=== PATIENT | male | born 1950 | race Caucasian/White ===

== ENCOUNTER 2017-03-21 17:22 | Inpatient (IN) | payer OTHER ==
[~2017-03-21] VITALS: Ht 174 cm; Wt 87.7 kg
[2017-03-21] VITALS (13 sets, daily range): BP systolic 115–183; BP diastolic 59–98; PULSE 60–98; RESP 16–20; TEMP 97.6–98.7; O2SAT 95–100
[~2017-03-21 17:22] MED LIST: IBUP600T26 PO; IOHEXOL 350 MG/ML 100 ML BTL (for Cath Lab) OTHER ONE; TRAM50TA PO
[2017-03-21] MEDS ORDERED: ASPIRIN 325 MG TAB PO ONE (17:45)
[2017-03-21] MEDS ORDERED: MORPHINE SULFATE 4 MG/ML INJ IV PUSH ONE (17:45)
[2017-03-21] MEDS ORDERED: ONDANSETRON HCL 4 MG/2 ML VIAL IV PUSH ONE (17:45)
[2017-03-21] MEDS: NITROGLYCERIN 0.4 MG SL 25 TABS/BTL SL SCH ×3 (17:45→17:56)
[2017-03-21] MEDS: SODIUM CHLORIDE 0.9% FLUSH 10 ML FLUSH IVF PRN ×2 (17:49→18:37)
--- NOTE | 2017-03-21 17:55 | PD ---
HPI Chief Complaint: Chest Pain Time Seen by Provider: 17:26 Travel History International Travel<30 days: No Contact w/Intl Traveler<30days: No History of Present Illness HPI 66-year-old male complains of chest pain for about 3-1/2 hours or so. It started shortly after he ate a large lunch including a salad with same and then a slice of pizza. He states it radiates from the left shoulder to the region of the right shoulder and across the chest wall. There is no exertional or pleuritic component. There is no shortness of breath. It has a tight quality. 8/10 as maximum severity reported and he states the pain is quite severe in the ER time of interview. He also appears somewhat uncomfortable. He has no history of diabetes hypertension hyperlipidemia smoking or coronary artery disease. His father had coronary artery disease in his 40s. The patient took 2 baby aspirin prior to ER arrival which didn't make a difference. In the car ride on the way over the patient vomited multiple times. He was diaphoretic at that time however has not had diaphoresis otherwise. There was no real relief after the vomiting episodes. [facility] Social History Alcohol Use: No Tobacco Use: No Substance Use: No Allergies-Medications (Allergen,Severity, Reaction): Coded Allergies: No Known Allergies (Unverified , 03/21/17) Reported Meds & Prescriptions Reported Meds & Active Scripts Active No Active Prescriptions or Reported Medications Review of Systems Except as stated in HPI: all other systems reviewed are Neg Physical Exam Narrative GENERAL: 66 yo M, WNWD, moderate distress 2/2 pain with or without anxiety SKIN: Warm and dry. HEAD: Atraumatic. Normocephalic. EYES: Pupils equal and round. No scleral icterus. No injection or drainage. ENT: No nasal bleeding or discharge. Mucous membranes pink and moist. NECK: Trachea midline. No JVD. CARDIOVASCULAR: Regular rate and rhythm. 2+ radial artery pulse bilaterally. RESPIRATORY: No accessory muscle use. Clear to auscultation. Breath sounds equal bilaterally. GASTROINTESTINAL: Abdomen soft, non-tender, nondistended. Hepatic and splenic margins not palpable. MUSCULOSKELETAL: Extremities without clubbing, cyanosis, or edema. No obvious deformities. No sign DVT. NEUROLOGICAL: Awake and alert. No obvious cranial nerve deficits. Motor grossly within normal limits. Five out of 5 muscle strength in the arms and legs. Normal speech. PSYCHIATRIC: Appropriate mood and affect; insight and judgment normal. Data Data Last Documented VS Vital Signs Date Time Temp Pulse Resp B/P Pulse Ox O2 Delivery O2 Flow Rate FiO2 03/21/17 18:02 16 03/21/17 18:00 61 131/70 98 Nasal Cannula 2 03/21/17 17:34 97.7 Orders Electrocardiogram (03/21/17 17:37) Basic Metabolic Panel (Bmp) (03/21/17 17:37) Ckmb (Isoenzyme) Profile (03/21/17 17:37) Complete Blood Count With Diff (03/21/17 17:37) Magnesium (Mg) (03/21/17 17:37) Prothrombin Time / Inr (Pt) (03/21/17 17:37) Act Partial Throm Time (Ptt) (03/21/17 17:37) Troponin I (03/21/17 17:37) Chest, Single Ap (03/21/17 17:37) Ecg Monitoring (03/21/17 17:37) Bilateral Bp Monitoring (03/21/17 17:37) Iv Access Insert/Monitor (03/21/17 17:37) Oximetry (03/21/17 17:37) Oxygen Administration (03/21/17 17:37) Aspirin (Aspirin) (03/21/17 17:45) Morphine Inj (Morphine Inj) (03/21/17 17:45) Sodium Chloride 0.9% Flush (Ns Flush) (03/21/17 17:45) Nitroglycerin Sl (Nitrostat Sl) (03/21/17 17:45) Ct Pulmonary Angiogram (03/21/17 17:37) Ondansetron Inj (Zofran Inj) (03/21/17 17:45) Aspirin Chew (Aspirin Chew) (03/21/17 18:00) B-Type Natriuretic Peptide (03/21/17 17:58) CKMB (03/21/17 17:30) CKMB% (03/21/17 17:30) Heparin Infusion MARTHA.Q1H (03/21/17 18:10) Heparin Inj (Heparin Inj) (03/21/17 18:15) Heparin Inj (Heparin Inj) (03/22/17 00:15) Heparin Inj (Heparin Inj) (03/22/17 00:15) Heparin-D5w Inj (Heparin-D5w Inj) (03/21/17 18:15) Cbc No Diff, Includes Plts (03/24/17 06:00) Act Partial Throm Time (Ptt) (03/22/17 01:10) Occult Blood (Hemoccult) Stool (03/21/17 18:10) Hepatic Functional Panel (03/21/17 17:30) Lipase (03/21/17 17:30) Hydromorphone Pf Inj (Dilaudid Pf Inj) (03/21/17 18:15) Nitroglycerin 2% Oint (Nitroglycerin 2% (03/21/17 18:15) Iohexol 350 Inj (Omnipaque 350 Inj) (03/21/17 18:39) Admit Order (Ed Use Only) (03/21/17 ) Spanish Interpreter / Telemetry MARTHA.Q8H (03/21/17 19:13) Vital Signs (Adult) Q4H (03/21/17 19:13) Ice Chips (03/21/17 19:13) Activity Oob With Assistance (03/21/17 19:13) Notify Dr: Other (03/21/17 19:13) ^ Saline Lock (03/21/17 19:13) Resp Oxygen Lizandro C Titrat 1-4 L (03/21/17 ) Notify Dr: Other (03/21/17 19:13) Sodium Chloride 0.9% Flush (Ns Flush) (03/21/17 21:00) Sodium Chloride 0.9% Flush (Ns Flush) (03/21/17 19:15) Consult Cardiology (03/21/17 19:13) Labs Laboratory Tests Test 03/21/17 17:30 White Blood Count 11.3 TH/MM3 Red Blood Count 4.95 MIL/MM3 Hemoglobin 14.4 GM/DL Hematocrit 42.0 % Mean Corpuscular Volume 84.8 FL Mean Corpuscular Hemoglobin 29.0 PG Mean Corpuscular Hemoglobin 34.3 % Concent Red Cell Distribution Width 12.2 % Platelet Count 311 TH/MM3 Mean Platelet Volume 8.4 FL Neutrophils (%) (Auto) 69.5 % Lymphocytes (%) (Auto) 21.2 % Monocytes (%) (Auto) 7.5 % Eosinophils (%) (Auto) 0.8 % Basophils (%) (Auto) 1.0 % Neutrophils # (Auto) 7.9 TH/MM3 Lymphocytes # (Auto) 2.4 TH/MM3 Monocytes # (Auto) 0.8 TH/MM3 Eosinophils # (Auto) 0.1 TH/MM3 Basophils # (Auto) 0.1 TH/MM3 CBC Comment DIFF FINAL Differential Comment Prothrombin Time 11.3 SEC Prothromb Time International 1.0 RATIO Ratio Activated Partial 25.3 SEC Thromboplast Time Sodium Level 139 MEQ/L Potassium Level 3.6 MEQ/L Chloride Level 102 MEQ/L Carbon Dioxide Level 28.5 MEQ/L Anion Gap 9 MEQ/L Blood Urea Nitrogen 11 MG/DL Creatinine 1.20 MG/DL Estimat Glomerular Filtration 61 ML/MIN Rate Random Glucose 146 MG/DL Calcium Level 8.0 MG/DL Magnesium Level 2.1 MG/DL Total Bilirubin 0.8 MG/DL Direct Bilirubin 0.1 MG/DL Indirect Bilirubin 0.7 MG/DL Aspartate Amino Transf 36 U/L (AST/SGOT) Alanine Aminotransferase 55 U/L (ALT/SGPT) Alkaline Phosphatase 73 U/L Total Creatine Kinase 287 U/L Creatine Kinase MB 3.0 NG/ML Troponin I 0.19 NG/ML B-Type Natriuretic Peptide 28 PG/ML Total Protein 7.7 GM/DL Albumin 3.8 GM/DL Lipase 104 U/L MDM Medical Decision Making Medical Screen Exam Complete: Yes Emergency Medical Condition: Yes Differential Diagnosis NSTEMI, unstable angina, coronary vasospasm, PE, PTX, aortic dissection, pericarditis, myocarditis, endocarditis, PNA, esophageal disease, aneurysm, musculoskeletal etiologies, anxiety, cocaine/sympathomimetic abuse Narrative Course EKG reveals sinus rhythm rate 65, extensive ST changes could reflect ischemic injury, no STEMI 1810: pain / after morphine, asa 162, and nitro sl x 3, now involving primarily L shoulder 1813: heparin gtt ordered, pt informed, RN informed 1817: page for Dr Melara of cardiology, pt also to CTA at approx same time 1854: pt reports improvement of pain 03/25 1920: pt resting comfortably on bed 1854: d/w Dr Melara of cardiology, who advises transfer to [facility] 1914: d/w Dr Castillo for [facility] 1950: pain improved significantly, CTA results d/w patient CBC & BMP Diagram 03/21/17 17:30 Tn 0.19 LFTs normal BNP < 100 Lipase normal Last 24 hours Impressions Chest X-Ray 03/21/17 2197 Signed Impressions: Service Date/Time: Tuesday, March 21, 2017 17:38 - CONCLUSION: 1. Minimal basal atelectasis. No effusion. No pneumothorax. Lucien Heller MD Critical Care Narrative Aggregate critical care time was 45 minutes. Time to perform other separately billable procedures was not included in the critical care time. My time did not include minutes spent treating any other patients simultaneously or on activities that did not directly contribute to the patient's treatment. The services I provided to this patient were to treat and/or prevent clinically significant deterioration that could result in: Heart injury due to coronary artery occlusion, intractable pain I provided critical care services requiring my management, as noted below: Chart data review, documentation time, medication orders and management, vital sign assessments/reviewing monitor data, ordering and reviewing lab tests, ordering and interpreting/reviewing x-rays and diagnostic studies, care of the patient and discussion of the patient with the admitting physicians. Diagnosis Primary Impression: NSTEMI (non-ST elevated myocardial infarction) Admitting Information Admitting Physician Requests: Admit Scripts No Active Prescriptions or Reported Mikey Sullivan MD March 21, 2017 17:55 activities that did not directly contribute to the patient's treatment. The services I provided to this patient were to treat and/or prevent clinically significant deterioration that could result in: Heart injury due to coronary artery occlusion, intractable pain I provided critical care services requiring my management, as noted below: Chart data review, documentation time, medication orders and management, vital sign assessments/reviewing monitor data, ordering and reviewing lab tests, ordering and interpreting/reviewing x-rays and diagnostic studies, care of the patient and discussion of the patient with the admitting physicians. Diagnosis Primary Impression: NSTEMI (non-ST elevated myocardial infarction) Scripts No Active Prescriptions or Reported Mikey Sullivan MD March 21, 2017 17:55
[2017-03-21 17:58] LABS: CHLORIDE 102 MEQ/L (98-107); POTASSIUM 3.6 MEQ/L (3.5-5.1); SODIUM (NA) 139 MEQ/L (136-145)
[2017-03-21] MEDS ORDERED: ASPIRIN 81 MG CHEW TAB PO ONE (18:00)
[2017-03-21 18:01] LABS: ANION GAP 9 MEQ/L (5-15); AUTOMATED NEUTROPHIL # 7.9 TH/MM3 (1.8-7.7); BASOPHIL # 0.1 TH/MM3 (0-0.2); BICARBONATE 28.5 MEQ/L (21.0-32.0); BLOOD UREA NITROGEN 11 MG/DL (7-18); EOSINOPHIL # 0.1 TH/MM3 (0-0.4); EOSINOPHIL % 0.8 % (0.0-4.0); HEMO FLAGS DIFF FINAL; LYMPH % 21.2 % (9.0-44.0); LYMPHOCYTE # 2.4 TH/MM3 (1.0-4.8); MAGNESIUM 2.1 MG/DL (1.5-2.5); MEAN CELL VOLUME 84.8 FL (80.0-100.0); MEAN CORPUSCULAR HGB CONC 34.3 % (32.0-36.0); MONO % 7.5 % (0.0-8.0); NEUT % 69.5 % (16.0-70.0); PLATELET COUNT 311 TH/MM3 (150-450); RED BLOOD COUNT 4.95 MIL/MM3 (4.50-5.90); RED CELL DISTRIBUTION WIDTH 12.2 % (11.6-17.2); WHITE BLOOD COUNT 11.3 TH/MM3 (4.0-11.0)
[2017-03-21 18:04] LABS: GLOMERULAR FILTRATION RATE 61 ML/MIN (>89)
[2017-03-21 18:07] LABS: CREATINE KINASE 287 U/L (39-308)
[2017-03-21] MEDS ORDERED: HEPARIN SODIUM - IV 10,000 UNITS/10 ML VIAL IV ONE (18:15)
[2017-03-21] MEDS ORDERED: HEPARIN-D5W INJ 250 ML IV SCH (18:15)
[2017-03-21] MEDS ORDERED: NITROGLYCERIN 2% OINT 1 GM PACKET TOP ONE (18:15)
[2017-03-21] MEDS ORDERED: HYDROmorphone HCL PF 1 MG/ML VIAL IV PUSH ONE (18:15)
[2017-03-21 18:17] LABS: APTT (PATIENT) 25.3 SEC (24.3-30.1); PROTHROMBIN TIME - PATIENT 11.3 SEC (9.8-11.6)
[2017-03-21 18:21] LABS: AST (GOT) 36 U/L (15-37)
[2017-03-21 18:22] LABS: TOTAL BILIRUBIN ADULT 0.8 MG/DL (0.2-1.0)
[2017-03-21 18:23] LABS: ALKALINE PHOSPHATASE 73 U/L (45-117)
[2017-03-21 18:37] LABS: ALT (GPT) 55 U/L (12-78); INDIRECT BILIRUBIN 0.7 MG/DL (0.0-0.8)
[2017-03-21] MEDS ORDERED: IOHEXOL 350 MG/ML 10 ML VIAL (for RAD DIAG) IV ONE (18:39)
--- NOTE | 2017-03-21 19:05 | RADHPO ---
EXAM DATE/TIME: 03/21/2017 17:38 [facility] COMPARISON: No previous studies available for comparison. INDICATIONS : Chest pain for 2 hrs MEDICAL HISTORY : None. SURGICAL HISTORY : None. ENCOUNTER: Initial ACUITY: 1 day PAIN SCORE: 10/10 LOCATION: Bilateral chest FINDINGS: A single view of the chest demonstrates the lungs to be symmetrically aerated without evidence of mas s, infiltrate or effusion. There is minimal basilar atelectasis. The cardiomediastinal contours are u nremarkable. Osseous structures are intact. CONCLUSION: 1. Minimal basal atelectasis. No effusion. No pneumothorax. Lucien Heller MD on March 21, 2017 at 19:02 Board Certified Radiologist. This report was verified electronically.
[2017-03-21] MEDS ORDERED: BISACODYL 10 MG SUPP RECTAL PRN (19:15)
[2017-03-21] MEDS ORDERED: SODIUM CHLORIDE 0.9% FLUSH 10 ML FLUSH IV FLUSH PRN (19:15)
[2017-03-21] MEDS ORDERED: SODIUM CHLORIDE 0.9% FLUSH 10 ML FLUSH IVF PRN (19:15)
[2017-03-21] MEDS ORDERED: MORPHINE SULFATE 4 MG/ML INJ IV PRN (19:15)
--- NOTE | 2017-03-21 19:34 | RADHPO ---
EXAM DATE/TIME: 03/21/2017 18:17 [facility] COMPARISON: No previous studies available for comparison. INDICATIONS : Left side chest pain. IV CONTRAST: 65 cc Omnipaque 350 (iohexol) IV RADIATION DOSE: 18.35 CTDIvol (mGy) MEDICAL HISTORY : None SURGICAL HISTORY : None. ENCOUNTER: Initial ACUITY: 1 day PAIN SCALE: 8/10 LOCATION: Left chest TECHNIQUE: Volumetric scanning of the chest was performed using a pulmonary embolism protocol MIP images were re constructed. Using automated exposure control and adjustment of the mA and/or kV according to patien t size, radiation dose was kept as low as reasonably achievable to obtain optimal diagnostic quality images. FINDINGS: There is minimal dependent atelectasis in the lungs. No filling defects are identified the pulmonary arteries to suggest pulmonary embolic disease. No mild coronary artery calcifications. No pleural or pericardial effusion. No acute findings in the upper abdomen. Small hiatal hernia. CONCLUSION: 1. Negative for pulmonary embolus. 2. There is mild dependent atelectasis in the lungs. 3. Mild coronary calcifications. 4. Small hiatal hernia. Lucien Heller MD on March 21, 2017 at 19:28 Board Certified Radiologist. This report was verified electronically.
[2017-03-21] MEDS: SODIUM CHLOR 0.9% 1000 ML INJ 1,000 ML IV SCH (20:24)
[2017-03-21] MEDS: SODIUM CHLORIDE 0.9% FLUSH 10 ML FLUSH IV FLUSH SCH (20:51)
[2017-03-21] MEDS ORDERED: SODIUM CHLORIDE 0.9% FLUSH 10 ML FLUSH IV FLUSH SCH (21:00)
--- NOTE | 2017-03-21 21:36 | EKG ---
Date Performed: 03/21/2017 Time Performed: 18:02:00 PTAGE: 66 years EKG: Sinus rhythm . Possible septal infarct - age undetermined Inferior/lateral ST-T changes are nonspecific Abnormal E CG PREVIOUS TRACING : 03/21/2017 17.23 DOCTOR: Lola Melara Interpretating Date/Time 03/21/2017 21:35:27
--- NOTE | 2017-03-21 21:38 | EKG ---
Date Performed: 03/21/2017 Time Performed: 17:23:28 PTAGE: 66 years EKG: Sinus rhythm . Extensive ST-T changes are nonspecific Borderline ECG PREVIOUS TRACING : 03/29/2015 11.22 DOCTOR: Lola Melara Interpretating Date/Time 03/21/2017 21:36:25
[2017-03-21] MEDS: METOPROLOL TARTRATE 25 MG TAB PO SCH (21:52)
[2017-03-21] MEDS: ONDANSETRON HCL 4 MG/2 ML VIAL IVP PRN (22:45)
[2017-03-21] MEDS: PANTOPRAZOLE SOD 40 MG DELAYED RELEASE TAB PO SCH (23:30)
[2017-03-21] MEDS ORDERED: ALUMINUM/MAGNESIUM/SIMETH 30 ML CUP PO ONE (23:30)
--- NOTE | 2017-03-21 23:45 | HHI.HP ---
[facility] No Primary Care Physician Admission Diagnosis NSTEMI Diagnoses: (1) NSTEMI (non-ST elevated myocardial infarction) Chief Complaint: Chest pain Travel History International Travel<30 Days: No Contact w/Intl Traveler <30 Da: No History of Present Illness Mr. Robles is a very pleasant 66-year-old male with a history of GERD and backaches who presented to the emergency room with complaint of chest pain. Troponin I elevation was noted as well as short runs of nonsustained ventricular tachycardia in the [place] emergency room. The patient has been transferred to [facility] for admission, evaluation, and management. The patient states he was out with his this afternoon. He had pizza and wings for lunch and they were shopping afterwards when he started to get an abrupt onset of upper chest discomfort and pain in both of his arms; he rates the pain as an 8 out of 10 and describes it as sharp. He states it waxed and waned at times with pain levels decreasing only to 5 out of 10 for maybe 5 minutes. The pain started at 2:30 PM on 03/21/2017 and by 5:30 PM, when the pain had not gone away, his urged him to seek emergency medical treatment and drove him to the emergency room. He states that the pain was relieved by medications administered in the ER: Aspirin, nitroglycerin, Dilaudid, and morphine. He denies any current chest pain. He states that he has had nausea 3 times today with vomiting. He reports some intermittent episodes of diaphoresis but believes this was related to anxiety from having the chest pain. He denies palpitations, shortness of breath, or dizziness/ lightheadedness. He has been suffering from heartburn and describes frequent eructation. He reports that last Thursday on 03/16/2017, he had returned from a flight to [place] with his . They were running through the [place] airport and he states he became diaphoretic and short of breath and required rest to ameliorate symptoms. 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 He is unable to tell me how long this is been going on but states he attributed the shortness of breath that occurred while trying to kick start motorcycles to getting older and not being able to perform like he used to. He denies any recent illness, fever, chills, upper respiratory symptoms, syncope , nausea, vomiting, or diarrhea. He denies diabetes mellitus, hypertension, heart disease, respiratory problems, kidney or liver problems, thyroid dysfunction, cancer, or seizures. He has not seen a primary care physician in about 3 years. . Review of Systems Except as stated in HPI: all other systems reviewed are Neg Past Family Social History Past Medical History GERD Occasional back pain/aches . Past Surgical History Varicose vein surgery - bilateral lower extremities . Reported Medications Advil 200 mg 1- 2 PRN back pain/aches Prilosec 20 mg OTC PRN for GERD symptoms . Allergies: Coded Allergies: No Known Allergies (Unverified , 03/21/17) Active Ordered Medications Current Medications Aspirin (Aspirin) 325 mg ONCE ONCE PO ; Start 03/21/17 at 17:45; Stop 03/21/17 at 17:47; Status DC Morphine Sulfate (Morphine Inj) 4 mg ONCE ONCE IV PUSH Last administered on 17:45; Start 03/21/17 at 17:45; Stop 03/21/17 at 17:46; Status DC Sodium Chloride (NS Flush) 2 ml UNSCH PRN IVF FLUSH AFTER USING IV ACCESS Last administered on 03/21/17 18:37; Start 03/21/17 at 17:45; Stop 03/21/17 at 19:40; Status DC Nitroglycerin (Nitrostat Sl) 0.4 mg Q5M SL Last administered on 03/21/17 17:56 ; Start 03/21/17 at 17:45; Stop 03/21/17 at 17:56; Status DC Ondansetron HCl (Zofran Inj) 4 mg ONCE ONCE IV PUSH Last administered on 17:44; Start 03/21/17 at 17:45; Stop 03/21/17 at 17:46; Status DC Aspirin (Aspirin Chew) 162 mg ONCE ONCE PO Last administered on 03/21/17 17:56 ; Start 03/21/17 at 18:00; Stop 03/21/17 at 18:01; Status DC Heparin Sodium (Porcine) (Heparin Inj) 4,000 units ONCE ONCE IV Last administered on 03/21/17 18:35; Start 03/21/17 at 18:15; Stop 03/21/17 at 18:16; Status DC Heparin Sodium (Porcine) (Heparin Inj) 5,000 units UNSCH PRN IV APTT LESS THAN 25; Start 03/22/17 at 00:15 Heparin Sodium (Porcine) 2500 units 2,500 units UNSCH PRN IV APTT 25 TO 39; Start 03/22/17 at 00:15 Heparin Sodium/ Dextrose (Heparin-D5W Inj) 250 ml @ 0 mls/hr TITRATE IV Last administered on 03/21/17 18:41; Start 03/21/17 at 18:15 Hydromorphone HCl (Dilaudid Pf Inj) 0.5 mg ONCE ONCE IV PUSH Last administered on 03/21/17 18:37; Start 03/21/17 at 18:15; Stop 03/21/17 at 18:18; Status DC Nitroglycerin (Nitroglycerin 2% Oint) 1 inch ONCE ONCE TOP Last administered on 03/21/17 18:36; Start 03/21/17 at 18:15; Stop 03/21/17 at 18:18; Status DC Iohexol (Omnipaque 350 Inj) 65 ml STK-MED ONCE IV Last administered on 18:39; Start 03/21/17 at 18:39; Stop 03/21/17 at 18:40; Status DC Sodium Chloride (NS Flush) 2 ml BID IV FLUSH ; Start 03/21/17 at 21:00; Stop 03/21 at 21:00; Status DC Sodium Chloride 2 ml 2 ml UNSCH PRN IVF FLUSH AFTER USING IV ACCESS; Start 03/21 at 19:15; Stop 03/21/17 at 19:40; Status DC Sodium Chloride (NS 1000 ml Inj) 1,000 ml @ 100 mls/hr Q10H IV Last administered on 03/21/17 20:24; Start 03/21/17 at 19:14 Sodium Chloride (NS Flush) 2 ml UNSCH PRN IV FLUSH FLUSH AFTER USING IV ACCESS ; Start 03/21/17 at 19:15 Sodium Chloride (NS Flush) 2 ml BID IV FLUSH ; Start 03/21/17 at 21:00 Ondansetron HCl (Zofran Inj) 4 mg Q6H PRN IVP NAUSEA OR VOMITING; Start at 19:15 Bisacodyl (Dulcolax Supp) 10 mg DAILY PRN RECTAL CONSTIPATION; Start 03/21/17 at 19:15 Acetaminophen (Tylenol) 650 mg Q6H PRN PO FEVER/PAIN SCALE 1 TO 2; Start at 19:15 Acetaminophen/ Hydrocodone Bitart ([place] 5-325 Mg) 1 tab Q4H PRN PO PAIN SCALE 3 TO 5; Start 03/21/17 at 19:15 Morphine Sulfate (Morphine Inj) 2 mg Q3H PRN IV Pain 6-10; Start 03/21/17 at 19: 15 Aspirin (Ecotrin Ec) 81 mg DAILY PO ; Start 03/22/17 at 09:00 Pravastatin Sodium (Pravachol) 40 mg DAILY PO ; Start 03/22/17 at 09:00 Metoprolol Tartrate (Lopressor) 12.5 mg Q12HR PO Last administered on 03/21/17t 21:52; Start 03/21/17 at 21:00 . Family History Father had open heart surgery at the age of 78; ?was told he had a heart attack at the age of about 48 or 50? - was seen at home and went back to work the next day 2 brothers - both have arthritis . Social History Tobacco: Smoked half a pack per day for 10 years - quit 35 years ago Alcohol: Denies Illicit Drugs: Denies . Physical Exam Vital Signs Vital Signs Date Time Temp Pulse Resp B/P Pulse Ox O2 Delivery O2 Flow Rate FiO2 03/21/17 23:02 98.7 98 18 135/84 95 03/21/17 20:48 68 20 143/74 100 03/21/17 19:20 97.7 60 18 129/72 98 Nasal Cannula 2 03/21/17 19:20 60 18 98 Nasal Cannula 2 03/21/17 18:02 16 03/21/17 18:02 16 03/21/17 18:00 61 16 131/70 98 Nasal Cannula 2 03/21/17 17:54 72 16 158/83 100 Nasal Cannula 03/21/17 17:48 67 16 161/87 03/21/17 17:48 18 98 Nasal Cannula 2 03/21/17 17:40 99 Nasal Cannula 2 03/21/17 17:40 68 16 175/98 99 Nasal Cannula 2 03/21/17 17:38 67 16 99 Room Air 03/21/17 17:34 97.7 66 16 183/97 99 Physical Exam GENERAL: This is a very pleasant male patient, in no apparent distress. SKIN: No rashes, ecchymoses or lesions. Cool and dry. HEAD: Atraumatic. Normocephalic. EYES: No scleral icterus. No injection or drainage. ENT: Nose without bleeding, purulent drainage. NECK: Trachea midline. No JVD. No carotid bruit auscultated. CARDIOVASCULAR: Regular rate and rhythm without murmurs, gallops, or rubs. Peripheral pulses are regular and strong. RESPIRATORY: Clear to auscultation. Breath sounds equal bilaterally. No wheezes , rales, or rhonchi. GASTROINTESTINAL: Abdomen soft, non-tender, nondistended. No guarding. MUSCULOSKELETAL: Extremities without clubbing, cyanosis, or edema. No calf tenderness. NEUROLOGICAL: Awake and alert. Motor and sensory grossly within normal limits. Normal speech. . Laboratory Laboratory Tests Test 03/21/17 17:30 White Blood Count 11.3 Red Blood Count 4.95 Hemoglobin 14.4 Hematocrit 42.0 Mean Corpuscular Volume 84.8 Mean Corpuscular Hemoglobin 29.0 Mean Corpuscular Hemoglobin 34.3 Concent Red Cell Distribution Width 12.2 Platelet Count 311 Mean Platelet Volume 8.4 Neutrophils (%) (Auto) 69.5 Lymphocytes (%) (Auto) 21.2 Monocytes (%) (Auto) 7.5 Eosinophils (%) (Auto) 0.8 Basophils (%) (Auto) 1.0 Neutrophils # (Auto) 7.9 Lymphocytes # (Auto) 2.4 Monocytes # (Auto) 0.8 Eosinophils # (Auto) 0.1 Basophils # (Auto) 0.1 CBC Comment DIFF FINAL Differential Comment Prothrombin Time 11.3 Prothromb Time International 1.0 Ratio Activated Partial 25.3 Thromboplast Time Sodium Level 139 Potassium Level 3.6 Chloride Level 102 Carbon Dioxide Level 28.5 Anion Gap 9 Blood Urea Nitrogen 11 Creatinine 1.20 Estimat Glomerular Filtration 61 Rate Random Glucose 146 Calcium Level 8.0 Magnesium Level 2.1 Total Bilirubin 0.8 Direct Bilirubin 0.1 Indirect Bilirubin 0.7 Aspartate Amino Transf 36 (AST/SGOT) Alanine Aminotransferase 55 (ALT/SGPT) Alkaline Phosphatase 73 Total Creatine Kinase 287 Creatine Kinase MB 3.0 Troponin I 0.19 B-Type Natriuretic Peptide 28 Total Protein 7.7 Albumin 3.8 Lipase 104 Result Diagram: 03/21/17172903/21/171729 Imaging Last Impressions Chest X-Ray 03/21/171736 Signed Impressions: Service Date/Time: Tuesday, March 21, 2017 17:38 - CONCLUSION: 1. Minimal basal atelectasis. No effusion. No pneumothorax. Lucien eHller MD CT Angiography 03/21/171736 Signed Impressions: Service Date/Time: Tuesday, March 21, 2017 18:17 - CONCLUSION: 1. Negative for pulmonary embolus. 2. There is mild dependent atelectasis in the lungs. 3. Mild coronary calcifications. 4. Small hiatal hernia. Lucien Heller MD . Assessment and Plan Problem List: (1) NSTEMI (non-ST elevated myocardial infarction) ICD Code: I21.4 Status: Acute (2) Chest pain ICD Code: R07.9 Status: Acute (3) Nonsustained ventricular tachycardia ICD Code: I47.2 Status: Acute (4) GERD (gastroesophageal reflux disease) ICD Code: K21.9 Status: Acute (5) Backache ICD Code: M54.9 Status: Chronic Assessment and Plan Mr. Robles is a very pleasant 66-year-old male with a history of GERD and backaches who presented to the emergency room with complaint of chest pain. Troponin I elevation was noted as well as short runs of nonsustained ventricular tachycardia in the [place] emergency room. The patient has been transferred to [facility] for admission, evaluation, and management. Chest Pain/NSTEMI - Initial Troponin I is 0.19, will check serial cardiac enzymes and EKG - first two EKGs show SR with nonspecific inferolateral ST-T changes - Dr. Melara consulted - Heparin drip for anticoagulation - Check lipid profile and hemoglobin A1C - to evaluate for hyperlipidemia and diabetes mellitus - Pravastatin 40 mg daily - Monitor I and Os to monitor for fluid overload Nonsustained ventricular tachycardia - Metoprolol 12.5 mg by mouth twice a day - Dr. Melara aware - Continuous cardiac telemetry to monitor for further arrhythmias GERD - Start Protonix 40 mg by mouth daily to control symptoms - Mylanta 30 cc one time dose Chronic intermittent backaches - suspect will worsen w/cardiac catheterization as patient will need to lay flat for some time post procedure - PRN analgesics DVT prophylaxis - heparin drip . Discussed Condition With Patient, Dr. Castillo, RN, and ER physician Collaborating MD Comments Agree w/ above assessment and plan. 66yom w/ acute onset of CP, found to have elevated trop 0.19 and episode of non- sustained Vtach prior to transport from PO -Continue Heparin gtt -Check serial cardiac enzymes -Dr. Melara consulted by ER physician prior to transfer, plan for possible cath -Keep NPO, IVF -Analgesics/antiemetics as needed Physician Certification 2 Midnight Certification Type: Admission for Inpatient Services Order for Inpatient Services The services are ordered in accordance with Medicare regulations or non- Medicare payer requirements, as applicable. In the case of services not specified as inpatient-only, they are appropriately provided as inpatient services in accordance with the 2-midnight benchmark. Estimated LOS (days): 3 days is the estimated time the patient will need to remain in the hospital, assuming treatment plan goals are met and no additional complications. Post-Hospital Plan: Not yet determined Problem Qualifiers (1) Backache: Shabnam Murillo March 21, 2017 23:45 Liseth Castillo MD March 22, 2017 00:41
[2017-03-22] VITALS (24 sets, daily range): BP systolic 126–140; BP diastolic 74–80; PULSE 60–82; RESP 16; TEMP 98.2–98.9; O2SAT 94–97
[2017-03-22] MEDS ORDERED: HEPARIN SODIUM - IV 10,000 UNITS/10 ML VIAL IV PRN ×2 (00:15)
[2017-03-22] MEDS: ACETAMINOPHEN/HYDROcodone 325 MG/5 MG TAB PO PRN ×3 (01:06→22:06)
[2017-03-22 02:41] LABS: APTT (PATIENT) 32.9 SEC (24.3-30.1)
[2017-03-22] MEDS: SODIUM CHLOR 0.9% 1000 ML INJ 1,000 ML IV SCH (05:14)
[2017-03-22 05:45] LABS: AUTOMATED NEUTROPHIL # 11.5 TH/MM3 (1.8-7.7); BASOPHIL % 0.1 % (0.0-2.0); HEMATOCRIT 39.4 % (39.0-51.0); HEMO FLAGS DIFF FINAL; LYMPH % 9.2 % (9.0-44.0); LYMPHOCYTE # 1.2 TH/MM3 (1.0-4.8); MEAN CELL VOLUME 85.6 FL (80.0-100.0); MEAN CORPUSCULAR HEMOGLOBIN 27.9 PG (27.0-34.0); MEAN CORPUSCULAR HGB CONC 32.6 % (32.0-36.0); MONO % 5.1 % (0.0-8.0); NEUT % 85.6 % (16.0-70.0); PLATELET COUNT 252 TH/MM3 (150-450); WHITE BLOOD COUNT 13.4 TH/MM3 (4.0-11.0)
[2017-03-22] MEDS: PANTOPRAZOLE SOD 40 MG DELAYED RELEASE TAB PO SCH (06:06)
[2017-03-22 06:11] LABS: ALKALINE PHOSPHATASE 67 U/L (45-117); ALT (GPT) 44 U/L (12-78); ANION GAP 10 MEQ/L (5-15); AST (GOT) 93 U/L (15-37); BICARBONATE 27.3 MEQ/L (21.0-32.0); BLOOD UREA NITROGEN 9 MG/DL (7-18); CHLORIDE 100 MEQ/L (98-107); GLOMERULAR FILTRATION RATE 80 ML/MIN (>89); HDL CHOLESTEROL 55.2 MG/DL (40.0-60.0); LDL CHOLESTEROL 151 MG/DL (0-99); POTASSIUM 3.7 MEQ/L (3.5-5.1); SODIUM (NA) 137 MEQ/L (136-145); TOTAL BILIRUBIN ADULT 0.9 MG/DL (0.2-1.0)
--- NOTE | 2017-03-22 08:00 | HHI.PR ---
Subjective Remarks Follow-up non-STEMI, nonsustained V. tach. The patient states that his chest pain is much better. He had an episode of vomiting this morning and feels nauseous. He had significant diaphoresis during emesis. Objective Vitals Vital Signs Date Time Temp Pulse Resp B/P Pulse Ox O2 Delivery O2 Flow Rate FiO2 03/22/17 07:38 16 03/22/17 05:00 64 03/22/17 04:00 74 03/22/17 03:00 82 03/22/17 03:00 98.5 78 16 127/75 95 03/22/17 02:00 80 03/22/17 01:00 82 03/22/17 00:00 70 03/21/17 23:02 98.7 98 18 135/84 95 03/21/17 23:00 70 03/21/17 21:45 97.6 71 18 134/81 100 Nasal Cannula 2 03/21/17 21:25 67 18 115/59 100 Nasal Cannula 2 03/21/17 21:10 64 18 123/77 96 Nasal Cannula 2 03/21/17 20:48 68 20 143/74 100 03/21/17 20:20 72 18 119/69 95 Nasal Cannula 2 03/21/17 19:20 97.7 60 18 129/72 98 Nasal Cannula 2 03/21/17 19:20 60 18 98 Nasal Cannula 2 03/21/17 18:02 16 03/21/17 18:02 16 03/21/17 18:00 61 16 131/70 98 Nasal Cannula 2 03/21/17 17:54 72 16 158/83 100 Nasal Cannula 03/21/17 17:48 67 16 161/87 03/21/17 17:48 18 98 Nasal Cannula 2 03/21/17 17:40 99 Nasal Cannula 2 03/21/17 17:40 68 16 175/98 99 Nasal Cannula 2 03/21/17 17:38 67 16 99 Room Air 03/21/17 17:34 97.7 66 16 183/97 99 I/O 03/21/17 03/21/17 03/21/17 03/22/17 03/22/17 03/22/17 07:00 15:00 23:00 07:00 15:00 23:00 Intake Total 974 ml Output Total 450 ml 500 ml Balance -450 ml 474 ml Intake Oral 240 ml IV Total 734 ml Output Urine Total 450 ml 500 ml # Voids 1 # Bowel Movements 0 Result Diagram: 03/22/17 0356 03/22/17 0356 Imaging Last Impressions Chest X-Ray 03/21/171736 Signed Impressions: Service Date/Time: Tuesday, March 21, 2017 17:38 - CONCLUSION: 1. Minimal basal atelectasis. No effusion. No pneumothorax. Lucien Heller MD CT Angiography 03/21/171736 Signed Impressions: Service Date/Time: Tuesday, March 21, 2017 18:17 - CONCLUSION: 1. Negative for pulmonary embolus. 2. There is mild dependent atelectasis in the lungs. 3. Mild coronary calcifications. 4. Small hiatal hernia. Lucien Heller MD Objective Remarks General: No acute distress. Heart: Regular rate and rhythm. No murmur. Lungs: Clear to auscultation bilaterally. No wheezes, rales, or rhonchi. Breathing is nonlabored. Abdomen: Soft, nontender, nondistended. Extremities: No lower extremity edema. Psych: Alert and oriented. Procedures None Urinary Catheter: No Vascular Central Line Catheter: No A/P Problem List: (1) NSTEMI (non-ST elevated myocardial infarction) ICD Code: I21.4 Status: Acute (2) Chest pain ICD Code: R07.9 Status: Acute (3) Nonsustained ventricular tachycardia ICD Code: I47.2 Status: Acute (4) GERD (gastroesophageal reflux disease) ICD Code: K21.9 Status: Chronic (5) Backache ICD Code: M54.9 Status: Chronic Assessment and Plan 1. Chest pain, NSTEMI: Troponin has increased overnight. Cardiology consult requested. Continue heparin drip. Continue statin. 2. Nonsustained ventricular tachycardia: Continue metoprolol. Cardiology has been notified. Continue telemetry monitoring. 3. GERD: Continue Protonix. 4. Chronic intermittent back pain: Continue analgesics as needed. 5. DVT prophylaxis: Heparin drip. 6. Nausea/vomiting: Continue Zofran as needed. Problem Qualifiers (1) Backache: Bryson Nelson MD March 22, 2017 08:00
[2017-03-22] MEDS: ASPIRIN EC 81 MG TABEC PO SCH (08:07)
[2017-03-22] MEDS: METOPROLOL TARTRATE 25 MG TAB PO SCH ×2 (08:08→22:02)
[2017-03-22] MEDS: ACETAMINOPHEN 325 MG TAB PO PRN ×2 (08:08→16:45)
[2017-03-22] MEDS: SODIUM CHLORIDE 0.9% FLUSH 10 ML FLUSH IV FLUSH SCH ×2 (08:08→22:04)
[2017-03-22] MEDS: ONDANSETRON HCL 4 MG/2 ML VIAL IVP PRN (08:15)
[2017-03-22] MEDS ORDERED: PRAVASTATIN SOD 40 MG TAB PO SCH (09:00)
[2017-03-22 09:47] LABS: HEMOGLOBIN A1a 1.3 %; HEMOGLOBIN A1b 1.5 %; HEMOGLOBIN Ao 85.5 %; HEMOGLOBIN LA1C 2.1 %; HEMOGLOBIN P3 3.7 %
[2017-03-22] MEDS ORDERED: HEPARIN-NS/PF INJ 500 ML ONE (11:07)
[2017-03-22] MEDS ORDERED: HEPARIN SODIUM - IV 10,000 UNITS/10 ML VIAL ONE ×2 (11:11→12:01)
[2017-03-22] MEDS ORDERED: MIDAZOLAM HCL 2 MG/2 ML VIAL ONE (11:11)
[2017-03-22] MEDS ORDERED: VERAPAMIL HCL 5 MG/2 ML VIAL ONE (11:11)
--- NOTE | 2017-03-22 12:11 | MB ---
cc: CESAR CARO DO DATE OF CONSULTATION: 03/22/2017 REASON FOR INTERVENTIONAL CARDIOLOGY CONSULTATION: N-STEMI, nonsustained ventricular tachycardia. HISTORY OF PRESENT ILLNESS: Angel Robles is a pleasant 66-year-old male who presented to [facility] emergency room on March 21, 2017 with a complaint of chest pain. He was out with his in the afternoon. He had pizza and wings for lunch and they were shopping afterwards when he started getting an abrupt onset of upper chest discomfort and pain into both his arms. He rates the pain as 8/10 and describes it as somewhat sharp but also pressure like. The pain seemed to wax and wane for some time. Around 05:30 p.m. the pain had not gone away so his urged him to come into the emergency room. He was given aspirin, nitro, Dilaudid and morphine and this somewhat took away his pain. Since being on the heparin drip, his pain is currently mostly gone. He does still have residual 1/10 across the front of his chest. He also got nauseous and vomited three times yesterday and once this morning. Last week (March 16, 2017) he was returning from a flight to [place] with his . They were running through the [place] airport and he started becoming diaphoretic and short of breath and required rest to decrease his symptoms. 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 As of this morning, he is mostly chest pain free but he is still having episodes of nonsustained VT with multiple episodes of 5 to 7 beat runs. PAST MEDICAL HISTORY: 1. GERD. 2. Occasional chronic back pain. PAST SURGICAL HISTORY: 1. Varicose vein surgery bilateral lower extremities. ALLERGIES: NO KNOWN DRUG ALLERGIES. MEDICATIONS: Denies. FAMILY HISTORY: Father had open heart surgery at the age of 78. There is a question about him maybe having a heart attack in his late 40s early 50s but he was seen at home and went back to work the next day so the patient is unsure about this. He has two brothers who have arthritis. SOCIAL HISTORY: The patient smokes half-a-pack of cigarettes per day for 10 years and quit 35 years ago. Denies alcohol or illicit drugs. REVIEW OF SYSTEMS: 14-systems were reviewed including osteopathic, pertinent positives and negatives above otherwise negative. PHYSICAL EXAMINATION: Vital signs: Temperature 98.6, heart rate 64, blood pressure 126/74, respirations 16, pulse ox 97% on 2 liters. In general the patient appears well in no acute distress, alert, awake and oriented x3. Extraocular muscles intact. Mucous membranes moist. Neck: Supple. No JVD at 45 degrees. No carotid bruits heard bilaterally. Carotid upstroke is brisk in nature. Heart is regular rate and rhythm. Positive first and second heart sounds with no murmurs, gallops or rubs. PMI is nondisplaced. Lungs: Clear to auscultation bilaterally. No wheezes, rales or rhonchi. Abdomen: Soft, nontender, nondistended. No organomegaly noted. Extremities: Show no clubbing, cyanosis or edema. Skin: Warm, dry and intact. Neurologically: No focal deficits. Osteopathically, no kyphoscoliosis, lordosis or paraspinal tender points. LABORATORY WORK: Hemoglobin 12.8, hematocrit 39.4, platelets 252. Potassium 3.7, BUN 9, creatinine 0.95, hemoglobin A1c 5.6, troponin 9.8. BNP 28, total cholesterol 226, LDL 151, HDL 55, triglycerides 100, TSH 1.14. Electrocardiogram (March 21, 2017 at 18:O2) sinus rhythm, possible age indeterminate septal infarct, nonspecific ST-T wave changes. IMPRESSION: 1. Chest pain concerning for coronary insufficiency. 2. N-STEMI. 3. Nonsustained ventricular tachycardia concerning for ischemia. 4. Chronic intermittent back pain. 5. Leukocytosis possibly reactive due to chronic illness. 6. Mild drop in hemoglobin most likely delusional. 7. Hyperlipidemia. RECOMMENDATIONS: 1. Mr. Robles appears to have had an N-STEMI with chest pain concerning for coronary insufficiency. My major concern is that he continues to have nonsustained ventricular tachycardia, although short runs, on telemetry. 2. Because of this, I feel that he should be taken today to the laboratory animal caretaker for coronary visualization and possible intervention. 3. We will check a 2-D echo to look at his overall left ventricular function, cardiac structure and possible valvulopathies. 4. He will continue on a heparin drip until coronary visualization. 5. He has been started on metoprolol tartrate for his N-STEMI as well as nonsustained VT. 6. Other recommendations will be made after coronary visualization. Thank you for allowing me to see Angel Robles. If there are any questions, please do not hesitate to call. Cesar Caro DO [facility] /11:02 AM /11:56 AM
[2017-03-22] MEDS ORDERED: TICAGRELOR 90 MG TAB PO ONE ×2 (12:31→14:30)
[2017-03-22] MEDS ORDERED: ASPIRIN 325 MG TAB ONE (13:32)
[2017-03-22] MEDS ORDERED: SODIUM CHLOR 0.9% 1000 ML INJ 1,000 ML IV SCH (13:50)
--- NOTE | 2017-03-22 13:50 | CATHPROC ---
ReactX HIS Report Study Information Study Number Scheduled Start Study Start [id number] 03/22/2017 Mar 22 2017 10:55AM Referring Institution Admit Source Facility Department 1 Emergency department [facility] - Research Chef Physician and Clinical Staff Initial Cesar Blackwell Immunohematologist Emmy Ac RN Immunohematologist Brisa Menjivar Recorder Hostevette, Gabino,RT(R) Scrub Winston, Juani,SLASHER TENDER HELPER TECH2 Procedures Performed Procedure Location (Site) Vessel Name Coronary Angiograms LCA Left Coronary Coronary Angiograms RCA Right Coronary Drug Eluting Inflatio LAD Prox Left Coronary PTCA DIAG1 Prox Left Coronary PTCA LAD Prox Left Coronary Wire insertion Radial (right) Radial Art. Equipment Time Neck Band Setter Description Size Mfg Part Number Used/Scraped 12:03 [employer] WIRE, [employer] PROWATER 180CM 180CM [id number] Used WIRE, BALANCE MIDDLEWEIGHT 12:01 [employer] 190CM [id number] Used 190CM WIRE, BALANCE MIDDLEWEIGHT 12:46 [employer] 190CM [id number] Used 190CM WIRE, WHISPER W/HYDROCOAT 12:55 [employer] 190CM [id number] Used 190CM TRANSDUCER, TRUWAVE 11:11 DELUNA SPARROW * [id number] Used W/STOCKCOCK 13:03 [employer] WIRE, CHOICE PT 182CM 182CM [id number] Used MEDICAL CONCEPT DRAPE, RADIAL FEMORAL FULL 11:11 * [id number] Used DEVELOPMENT BODY 11:11 [employer] PACK, CCL CUSTOM * [id number] Used 11:11 [employer] SUPPORT, ARTERIAL ADULT [id number] Used 13:23 [employer] BALLOON, 1.5 X 10MM EUPHORA 10MM [id number] Used 12:23 [employer] BALLOON, 2.0 X 12MM EUPHORA 12MM [id number] Used BALLOON, 2.0 X 6MM NC 13:25 [employer] 6MM [id number] Used EUPHORA BALLOON, 2.5 X 15MM NC 12:43 [employer] 15MM [id number] Used EUPHORA STENT, 2.5 26 RESOLUTE 12:33 [employer] 2.5 26 [id number] Used INTEGRITY RX 12:02 [employer]/AVE EBU 3.5 Z2 GUIDE CATHETER FR 6 [id number] Used [id number] 12:00 Stootie 30 MANUEL INDEFLATOR Used *[id number] 11:11 [employer] WIRE, EXCHANGE 260CM 3MMJ 260CM [id number] Used 11:11 NAMIC MANIFOLD, 4 PORT * [id number] Used 11:11 [employer] OMNIPAQUE, 350 MG, 100ML 100ML [id number] Used 11:11 [employer] BLANKET,WARM AIR CCL * [id number] Used BAND, RADIAL COMPRESSION TR 11:11 [employer]ICAL 29CM [id number] Used LARGE SHEATH, FR6 TRANSRADIAL 11:11 [employer] FR 6 RM*[id number] Used SLENDER 10CM Equipment Model, Serial, Lot Number and Expiration Data Description Model Number Serial Number Lot Number Expiration Date BALLOON, 2.0 X 12MM EUPHORA [id number] 10-29-2018 BALLOON, 2.0 X 6MM NC EUPHORA [id number] 08-14-2018 BALLOON, 2.5 X 15MM NC [id number] 11-06-2018 EUPHORA STENT, 2.5 26 RESOLUTE [id number] 06-26-2018 INTEGRITY RX WIRE, CHOICE PT 182CM [id number] 09-03-2018 History: Allergies Allergy Reaction No Known Allergies History: Risk Factors Family History of Premature CAD Yes History: Stress Tests Stress or Imaging Studies Performed No History: Other Current Smoker Method Quit Packs a Day Years Used Pack Years No Cigarettes 35 Years Ago 1 5 5 Labs Hgb (g/dl) Hct (%) RBC (MIL/MM3) WBC (l/cumm) Platelets (thousands) 12.00-18.00 37.00-55.00 4.80-6.20 4.80-10.80 140.00-450.00 12.8 39.4 4.6 13.4 252 Glucose (mg/dl) BUN (mg/dl) Creatinine (mg/dl) BUN:Creatinine (1:x) 60.00-110.00 8.00-20.00 0.10-9.00 10.00-20.00 116 9 0.9 10 Na (meq/l) K (meq/l) Cl (meq/l) CO2 (mmol/L) 138.00-146.00 3.80-5.10 101.00-111.00 23.00-30.00 137 3.7 100 27.3 PT (sec) PTT (sec) INR (PTT:PT) 9.40-11.40 25.10-32.70 0.50-2.00 11.3 32.9 1 Troponin I (ng/ml) CPK-MB (ng/ML) 0.40-2.30 0.00-7.00 9.8 3.0 Medication Medication Total Dose (Bolus/Oral) Medication Total Dosage/Unit 1% XYLOCAINE 5 mL ASPIRIN 325 mg BRILLINTA 180 mg FENTANYL 50 mcg HEPARIN 8000 units NTG (IC) 200 mcg RADIAL COCKTAIL 5 mL (Bolus) VERSED 0.5 mg Medications (Bolus/Oral) Medication Time Given Dosage/Unit Administered By Reason 1% XYLOCAINE 03/22/2017 11:46:37 AM 5 mL Cesar Zheng Patient arrived on 5 mL 1% XYLOCAINE given by Cesar Zheng in Right Radial via Subcutaneous. Ord ered by Cesar Zheng. Ntg 300mcg Verapamil 2.5mg Heparin RADIAL COCKTAIL 03/22/2017 11:47:37 AM 5 mL (Bolus) Cesar Zheng 2500U 5 mL (Bolus) RADIAL COCKTAIL given in lab by Cesar Zheng in Right Radial via Radial. Using [Shirlene ution Name]. Ordered by Cesar Zhneg. Reason: Ntg 300mcg Verapamil 2.5mg Heparin 2500U. VERSED 03/22/2017 11:48:38 AM 0.5 mg Benjyer, Brisa 0.5 mg VERSED given in lab by Brisa Menjivar in Right Forearm via Peripheral IV. Ordered by Cesar Zheng. FENTANYL 03/22/2017 11:49:56 AM 25 mcg Benjyer, Brisa 25 mcg FENTANYL given in lab by Brisa Menjivar in Right Forearm via Peripheral IV. Ordered by Cesar Anthony. HEPARIN 03/22/2017 12:02:14 PM 8000 units Benjyer, Brisa 8000 units HEPARIN given in lab by Brisa Menjivar in Right Forearm via Peripheral IV. Ordered by Pet Cesar hays. FENTANYL 03/22/2017 1:24:07 PM 25 mcg Benjyer, Brisa 25 mcg FENTANYL given in lab by Brisa Menjivar via Peripheral IV. Ordered by Cesar Zheng. NTG (IC) 03/22/2017 1:24:19 PM 200 mcg Cesar Zheng 200 mcg NTG (IC) given in lab by Cesar Zheng via Intra-coronary. Ordered by Cesar Zheng. BRILLINTA 03/22/2017 1:45:45 PM 180 mg Brisa Menjivar 180 mg BRILLINTA given in lab by Brisa Menjivar in Per mouth via Oral. Ordered by Cesar Zheng. ASPIRIN 03/22/2017 1:45:59 PM 325 mg Brisa Menjivar 325 mg ASPIRIN given in lab by Brisa Menjivar via Oral. Medication (Drip) Medication Time Given Dosage/Unit Concentration/Unit Diluent (ml) Solution HEPARIN DRIP 03/22/2017 11:30:23 AM 0 units/hr 03794 units 250 D5W Patient arrived on 0 units/hr HEPARIN DRIP given by Cesar Zheng in Right Forearm via Peripheral IV. Pump/Drip Flow = 0 ml/hr [place] D5[place] [address] units in 250 ml. Ordered by Cesar Zheng. Reason: As per physicians michaelle bal order. Discontinued at 03/22/2017 11:38. IV Solutions 03/22/2017 11:36:27 AM 0 mL (IV) 500 NaCl .9 Patient arrived on IV Solutions given by Cesar Zheng in Right Forearm via Peripheral IV. Pump/D rip Flow = 20 ml/hr using NaCl .9. Ordered by Cesar Zheng. Reason: As per physicians verbal order. Initial Case Assessment Cardiovascular HR Rhythm NIBP Chest Pain 70 sr 137/82 0 Edema Present Skin color Skin None Normal Warm Dry Circulatory - Right Pulses Dorsalis Pedis Femoral Radial 3 3 3 Scale (0,1,2,3,4,d) Scale (0,1,2,3,4,d) Neurological State Oriented to time-place- Alert Moves all extremities person Respiration - General Respiration Rate SpO2 (%) O2 (lpm) (B/min) 18 96 2 Final Case Assessment Cardiovascular HR Rhythm NIBP Chest Pain 66 sr 151/80 0 Edema Present Skin color Skin None Normal Warm Dry Circulatory - Right Pulses Dorsalis Pedis Femoral Radial 3 3 3 Scale (0,1,2,3,4,d) Scale (0,1,2,3,4,d) Neurological State Oriented to time-place- Alert Moves all extremities person Respiration - General Respiration Rate SpO2 (%) O2 (lpm) (B/min) 18 96 2 Chronological Log Time Study Chronological Log 11:27:16 Patient arrived via Bed. 11:27:20 Patient Name, D.O.B, / Armband Verified By R.N. 11:27:22 Consent signed by the physician and the patient and verified by the Research Chef staff. 11:27:23 Pre-op and post- op instructions given; patient acknowledges understanding of instructions. 11:28:03 Verbal Stimulation=2 Physical Stimulation=2 Airway=2 Respiration=2 TOTAL=8. (0=absent, 1=li mited, 2=present) 11:28:30 Presedation assessment performed by Research Chef RN. 11:28:35 Positive Allens test performed on the right radial and ulnar artery by Gabino Peterson. 11:28:52 Allens test performed on the left radial and ulnar artery. 11:28:58 Patient has been NPO for More than 6Hrs. 11:29:00 Skin Breakdown-none present per patient. Patient arrived on 0 units/hr HEPARIN DRIP given by Cesar Zheng in Right Forearm via Sofy pheral IV. Pump/Drip 11:30:23 Flow = 0 ml/hr [place] [address] units in 250 ml. Ordered by Cesar Zheng. Reason: As per physicians verbal order. Discontinued at 03/22/2017 11:38. 11:36:17 A # 20 IV was noted in the Forearm (right). Grade = 0 Patient arrived on IV Solutions given by Cesar Zheng in Right Forearm via Peripheral IV. Pump/Drip Flow = 20 11:36:27 ml/hr using NaCl .9. Ordered by Cesar Zheng. Reason: As per physicians verbal order. 11:37:04 History and physical on the chart or being dictated. Vitals capture started with the following parameters, Patient=Adult, Interval=5 min, Initial Pr dshqdh=284 mmHg, 11:37:07 Deflation Rate=5 mmHg 11:38:15 HR=70 bpm, RRBZ=478/82 mmhg, SpO2=95.0 %, Resp=16 B/min, Xiao=2 11:38:55 History and physical on the chart or being dictated. Assessment: Initial Case, HR=70 BPM, Rhythm=sr, WRND=739/82 mmhg, Chest Pain=0, Edema=None, Col or=Normal, Skin = Warm, Dry 11:38:58 Right Pulses: Milind Ped=3, Femoral=3, Radial=3 Neurological: State=Alert, Ox3, SUN Respiration: Resp=18 B/min, SpO2=96 %, O2=2 lpm 11:39:04 Reference ECG taken 11:39:38 Right Radial and right groin prepped with 2% chlorhexidine, and with a 3 min. waiting time. 11:41:28 Pressure channel 1 zeroed. 11:42:43 HR=71 bpm, EEGH=148/84 mmhg, HoL8=240.0 %, Resp=33 B/min, Xiao=2 Time Out. Correct patient, correct procedure,correct physician, ,power injector not loaded with contrast with surgical 11:46:01 team present. Time Out Concurred by MD, individual staff and ASSEMBLY MACHINE OFFBEARER in procedure. Not loaded at t his time. 11:46:23 Presedation re-assessment performed by Research Chef RN. 11:46:25 Case Start 11:46:27 Verbal Stimulation=2 Physical Stimulation=2 Airway=2 Respiration=2 TOTAL=8. (0=absent, 1=li mited, 2=present) Patient arrived on 5 mL 1% XYLOCAINE given by Cesar Zheng in Right Radial via Subcutaneou s. Ordered by 11:46:37 Cesar Zheng. 11:47:07 Access site was Radial Artery. right radial A SHEATH, FR6 TRANSRADIAL SLENDER 10CM FR 6 was advanced into the Fem Art (right) using the Mod ified 11:47:21 Seldinger technique. 5 mL (Bolus) RADIAL COCKTAIL given in lab by Cesar Zheng in Right Radial via Radial. in g [Solution Name]. 11:47:37 Ordered by Cesar Zheng. Reason: Ntg 300mcg Verapamil 2.5mg Heparin 2500U. 11:47:44 HR=77 bpm, KAZK=803/84 mmhg, SpO2=97.0 %, Resp=25 B/min, Xiao=2 11:48:38 0.5 mg VERSED given in lab by Brisa Menjivar in Right Forearm via Peripheral IV. Ordered b y Cesar Zheng. A JR 4.0 INFINITI CATHETER FR 5 was advanced over a wire. OMNIPAQUE, 350 MG, 100ML 100ML was us ed for 11:49:06 injections. 11:49:56 25 mcg FENTANYL given in lab by Brisa Menjivar in Right Forearm via Peripheral IV. Ordered by Cesar Zheng. Recorded Pressure: LV, HR=75, Condition=Condition 1 11:50:56 (Left Ventricle) LV 121/6/25 Recorded Pressure: LV, Ao, HR=73, Condition=Condition 1 11:51:08 (Left Ventricle) LV 119/8/26, (Aorta) Ao 111/61/85 11:51:33 The RCA was injected and visualized at various angles. OMNIPAQUE, 350 MG, 100ML 100ML used . Recorded Pressure: Ao, HR=72, Condition=Condition 1 11:51:41 (Aorta) Ao 111/63/85 11:52:49 HR=66 bpm, IOLP=061/65 mmhg, SpO2=93.0 %, Resp=24 B/min, Xiao=2 11:52:56 A WIRE, EXCHANGE 260CM 3MMJ 260CM was inserted via Radial (right). After removing the current catheter a JL 3.5 INFINITI CATHETER FR 5 was advanced over a WIRE, E XCHANGE 260CM 11:54:28 3MMJ 260CM. 11:55:06 The LCA was injected and visualized at various angles. OMNIPAQUE, 350 MG, 100ML 100ML used . 11:57:42 HR=73 bpm, SZJI=147/67 mmhg, SpO2=95.0 %, Resp=16 B/min, Xiao=2 12:02:14 8000 units HEPARIN given in lab by Brisa Menjivar in Right Forearm via Peripheral IV. Orde red by Cesar Zheng. 12:02:45 HR=71 bpm, LNCW=463/73 mmhg, SpO2=94.0 %, Resp=13 B/min, Xiao=2 After removing the current catheter a EBU 3.5 Z2 GUIDE CATHETER FR 6 was advanced over a WIRE, EXCHANGE 12:02:49 260CM 3MMJ 260CM. 12:07:14 A WIRE, BALANCE MIDDLEWEIGHT 190CM 190CM was inserted via Radial (right). 12:07:44 HR=68 bpm, UEKV=067/76 mmhg, SpO2=96.0 %, Resp=23 B/min, Xiao=2 12:12:48 HR=64 bpm, KLLL=937/70 mmhg, SpO2=97.0 %, Resp=43 B/min, Xiao=2 12:12:52 Interventional wire has crossed the lesion BMW into the DIAG. 12:15:01 A WIRE, ASAHI PROWATER 180CM 180CM was inserted via Radial (right). 12:17:47 HR=65 bpm, IURV=900/77 mmhg, SpO2=95.0 %, Resp=56 B/min, Xiao=2 12:18:40 Interventional wire has crossed the lesion Prowater down the LAD 12:22:48 HR=66 bpm, SXMK=509/75 mmhg, SpO2=95.0 %, Resp=43 B/min, Xiao=2 12:23:37 A BALLOON, 2.0 X 12MM EUPHORA 12MM was inserted over WIRE, ASAHI PROWATER 180CM 180CM via t he LAD Prox. A BALLOON, 2.0 X 12MM EUPHORA 12MM over a WIRE, ASAHI PROWATER 180CM 180CM in the LAD Prox was inflated 12:23:55 using a 30 MANUEL INDEFLATOR at 10 manuel for 16 sec. A BALLOON, 2.0 X 12MM EUPHORA 12MM over a WIRE, ASAHI PROWATER 180CM 180CM in the LAD Prox was inflated 12:25:24 using a 30 MANUEL INDEFLATOR at 10 manuel for 12 sec. 12:25:57 Activated Clotting Time Drawn 12:27:45 HR=61 bpm, KNWV=946/81 mmhg, SpO2=93.0 %, Resp=48 B/min, Xiao=2 12:31:35 Balloon Removed. 12:31:40 ACT (Normal Range 90-180) = 311 12:32:46 HR=65 bpm, BADT=946/88 mmhg, Resp=61 B/min, Xiao=2 A STENT, 2.5 26 RESOLUTE INTEGRITY RX 2.5 26 was advanced through a EBU 3.5 Z2 GUIDE CATHETER F R 6 over a 12:32:52 WIRE, ASAHI PROWATER 180CM 180CM. A STENT, 2.5 26 RESOLUTE INTEGRITY RX 2.5 26 was deployed using a 30 MANUEL INDEFLATOR at 9 atmosp heres for 10 12:33:14 seconds in the LAD Prox. 12:36:16 Delivery device removed 12:37:25 BMW pulled back to be re-wired down the Diag. 12:37:51 HR=69 bpm, ZRQA=651/84 mmhg, SpO2=91.0 %, Resp=65 B/min, Xiao=2 A BALLOON, 2.5 X 15MM NC EUPHORA 15MM was inserted over WIRE, BALANCE MIDDLEWEIGHT 190CM 190CM via 12:42:43 the LAD Prox. 12:42:54 HR=69 bpm, FWJM=447/80 mmhg, SpO2=95.0 %, Resp=42 B/min, Xiao=2 12:43:30 BMW Wire removed A BALLOON, 2.5 X 15MM NC EUPHORA 15MM over a WIRE, ASAHI PROWATER 180CM 180CM in the LAD Prox w as 12:43:43 inflated using a 30 MANUEL INDEFLATOR at 12 manuel for 10 sec. A BALLOON, 2.5 X 15MM NC EUPHORA 15MM over a WIRE, ASAHI PROWATER 180CM 180CM in the LAD Prox w as 12:45:14 inflated using a 30 MANUEL INDEFLATOR at 18 manuel for 12 sec. 12:45:35 Balloon Removed. 12:46:29 A WIRE, BALANCE MIDDLEWEIGHT 190CM 190CM was inserted via Radial (right). 12:47:51 HR=68 bpm, SHLS=378/89 mmhg, SpO2=94.0 %, Resp=31 B/min, Xiao=2 12:52:52 HR=66 bpm, FMKV=261/85 mmhg, SpO2=94.0 %, Resp=14 B/min, Xiao=2 12:55:06 Wire removed 12:55:50 A WIRE, WHISPER W/HYDROCOAT 190CM 190CM was inserted via Radial (right). 12:57:55 HR=67 bpm, JAGF=809/81 mmhg, SpO2=91.0 %, Resp=32 B/min, Xiao=2 13:02:41 Wire removed 13:02:56 HR=71 bpm, EEJK=540/83 mmhg, SpO2=94.0 %, Resp=21 B/min, Xiao=2 13:03:16 A WIRE, CHOICE PT 182CM 182CM was inserted via Radial (right). 13:07:22 Activated Clotting Time Drawn 13:07:57 HR=68 bpm, PTQH=544/86 mmhg, SpO2=91.0 %, Resp=18 B/min, Xiao=2 13:12:48 Wire removed 13:12:51 ACT (Normal Range 90-180) = 296 13:12:59 HR=69 bpm, VYDZ=009/87 mmhg, SpO2=92.0 %, Resp=27 B/min, Xiao=2 13:13:07 A WIRE, WHISPER W/HYDROCOAT 190CM 190CM was inserted via Radial (right). 13:17:55 HR=69 bpm, MPII=793/90 mmhg, SpO2=91.0 %, Resp=14 B/min, Xiao=2 13:20:21 Interventional wire has crossed the lesion A BALLOON, 1.5 X 10MM EUPHORA 10MM was inserted over WIRE, WHISPER W/HYDROCOAT 190CM 190CM via the ::06 DIAG1 Prox. A BALLOON, 1.5 X 10MM EUPHORA 10MM over a WIRE, WHISPER W/HYDROCOAT 190CM 190CM in the DIAG1 Pr ox 13:: was inflated using a 30 MANUEL INDEFLATOR at 8 manuel for 10 sec. 13:22:59 HR=68 bpm, OIJA=397/85 mmhg, SpO2=97.0 %, Resp=15 B/min, Xiao=2 13:23:44 Balloon Removed. 13:24:07 25 mcg FENTANYL given in lab by Brisa Menjivar via Peripheral IV. Ordered by Jah Zheng. 13:24:19 200 mcg NTG (IC) given in lab by Cesar Zheng via Intra-coronary. Ordered by Cesar Zheng. A BALLOON, 2.0 X 6MM NC EUPHORA 6MM was inserted over WIRE, WHISPER W/HYDROCOAT 190CM 190CM via the :: DIAG1 Prox. A BALLOON, 2.0 X 6MM NC EUPHORA 6MM over a WIRE, WHISPER W/HYDROCOAT 190CM 190CM in the DIAG1 P jose a 13::55 was inflated using a 30 MANUEL INDEFLATOR at ~MANUEL~ manuel for ~SECONDS~ sec. A BALLOON, 2.0 X 6MM NC EUPHORA 6MM over a WIRE, WHISPER W/HYDROCOAT 190CM 190CM in the DIAG1 P jose a 13:26:29 was inflated using a 30 MANUEL INDEFLATOR at 12 manuel for 5 sec. A BALLOON, 2.0 X 6MM NC EUPHORA 6MM over a WIRE, WHISPER W/HYDROCOAT 190CM 190CM in the DIAG1 P jose a 13:26:55 was inflated using a 30 MANUEL INDEFLATOR at 12 manuel for 5 sec. 13:27:25 Balloon Removed. 13:28:02 HR=66 bpm, JBKW=528/80 mmhg, SpO2=91.0 %, Resp=14 B/min, Xiao=2 13:30:15 Wires removed 13:31:09 Catheter was removed OTW. Assessment: Final Case, HR=66 BPM, Rhythm=sr, EVRT=486/80 mmhg, Chest Pain=0, Edema=None, Color =Normal, Skin = Warm, Dry 13:32:02 Right Pulses: Milind Ped=3, Femoral=3, Radial=3 Neurological: State=Alert, Ox3, SUN Respiration: Resp=18 B/min, SpO2=96 %, O2=2 lpm 13:32:38 Catheter(s) removed without difficulty Radial Compression Device Used. 6 mLs of air placed in BAND, RADIAL COMPRESSION TR LARGE 29CM. Affected hand 13:32:40 94 % O2 saturation. 13:33:01 HR=69 bpm, KRRO=405/85 mmhg, SpO2=93.0 %, Resp=8 B/min, Xiao=2 13:33:20 Case End 13:33:23 No case complications noted. 13:33:25 Cine recording checked. 13:33:35 Implantable Device card placed in patient's chart. 13:33:38 Contrast Scanned 13:44:[address] [facility] 13:45:45 180 mg BRILLINTA given in lab by Brisa Menjivar in Per mouth via Oral. Ordered by Cesar Alexis. 13:45:59 325 mg ASPIRIN given in lab by Brisa Menjivar via Oral. End Study - Contrast Media Used In Study Contrast Total Opened (mL) Total Used (mL) Total Wasted (mL) Omnipaque 200 200 0 End Study - Maximum Contrast Load Max Contrast Load (mL) 489.4 End Study - Radiation Exposure Fluoro Time (minutes) 45.0 End Study - Patient Disposition Complications Transferred To Interventional Outcome No Telemetry Bed successful
[2017-03-22] MEDS ORDERED: oxyCODONE/ACETAMINOPHEN 10 MG/325 MG TAB PO PRN (14:00)
[2017-03-22] MEDS ORDERED: MORPHINE SULFATE 4 MG/ML INJ IV PUSH PRN (14:00)
[2017-03-22] MEDS ORDERED: oxyCODONE/ACETAMINOPHEN 5 MG/325 MG TAB PO PRN (14:00)
[2017-03-22] MEDS ORDERED: HEPARIN SODIUM - IV 10,000 UNITS/10 ML VIAL IV ONE (14:30)
[2017-03-22] MEDS ORDERED: ASPIRIN 325 MG TAB PO ONE (14:30)
[2017-03-22] MEDS ORDERED: MIDAZOLAM HCL 2 MG/2 ML VIAL IV ONE (14:30)
[2017-03-22] MEDS: ATORVASTATIN 80 MG TAB PO SCH (22:04)
[2017-03-22] MEDS: TICAGRELOR 90 MG TAB PO SCH (22:13)
[2017-03-23] VITALS (24 sets, daily range): BP systolic 112–136; BP diastolic 64–81; PULSE 59–76; RESP 16; TEMP 98.2–98.9; O2SAT 90–96
[2017-03-23] MEDS: PANTOPRAZOLE SOD 40 MG DELAYED RELEASE TAB PO SCH (06:01)
[2017-03-23] MEDS: HEPARIN SODIUM - SQ 10,000 UNITS/ML VIAL SQ SCH ×3 (06:04→22:01)
[2017-03-23 06:22] LABS: AUTOMATED NEUTROPHIL # 7.6 TH/MM3 (1.8-7.7); BASOPHIL % 0.2 % (0.0-2.0); EOSINOPHIL % 0.5 % (0.0-4.0); HEMATOCRIT 37.7 % (39.0-51.0); HEMO FLAGS DIFF FINAL; LYMPH % 11.6 % (9.0-44.0); LYMPHOCYTE # 1.1 TH/MM3 (1.0-4.8); MEAN CELL VOLUME 85.1 FL (80.0-100.0); MEAN CORPUSCULAR HEMOGLOBIN 29.1 PG (27.0-34.0); MEAN CORPUSCULAR HGB CONC 34.1 % (32.0-36.0); MONO % 9.8 % (0.0-8.0); NEUT % 77.9 % (16.0-70.0); PLATELET COUNT 221 TH/MM3 (150-450); RED BLOOD COUNT 4.44 MIL/MM3 (4.50-5.90); RED CELL DISTRIBUTION WIDTH 13.3 % (11.6-17.2); WHITE BLOOD COUNT 9.8 TH/MM3 (4.0-11.0)
[2017-03-23 06:40] LABS: BICARBONATE 29.4 MEQ/L (21.0-32.0); INDIRECT BILIRUBIN 1.1 MG/DL (0.0-0.8); POTASSIUM 3.9 MEQ/L (3.5-5.1); TOTAL BILIRUBIN ADULT 1.3 MG/DL (0.2-1.0)
[2017-03-23] MEDS: TICAGRELOR 90 MG TAB PO SCH ×2 (08:18→22:01)
[2017-03-23] MEDS: SODIUM CHLORIDE 0.9% FLUSH 10 ML FLUSH IV FLUSH SCH ×2 (08:18→21:00)
[2017-03-23] MEDS: METOPROLOL TARTRATE 25 MG TAB PO SCH ×2 (08:18→22:00)
[2017-03-23] MEDS: ASPIRIN EC 81 MG TABEC PO SCH (08:18)
--- NOTE | 2017-03-23 08:27 | HHI.PR ---
Subjective Remarks Follow-up NSTEMI. The patient states that he feels much better today. No chest pain or dyspnea. Nausea and vomiting resolved. He states that he wants to go home today. Objective Vitals Vital Signs Date Time Temp Pulse Resp B/P Pulse Ox O2 Delivery O2 Flow Rate FiO2 03/23/17 04:10 98.6 65 16 112/64 90 03/23/17 04:00 64 03/23/17 03:00 64 03/23/17 02:00 64 03/23/17 01:00 66 03/23/17 00:20 98.9 74 16 131/72 92 03/23/17 00:00 60 03/22/17 23:00 63 03/22/17 22:00 70 03/22/17 21:00 72 03/22/17 20:10 98.9 77 16 140/75 94 03/22/17 20:00 70 03/22/17 19:09 21 03/22/17 19:00 74 03/22/17 18:00 68 03/22/17 17:58 16 03/22/17 17:00 72 03/22/17 16:00 98.2 74 16 131/80 96 03/22/17 16:00 73 03/22/17 15:00 72 03/22/17 14:00 76 03/22/17 12:00 64 03/22/17 12:00 98.2 66 16 137/74 95 03/22/17 11:00 64 03/22/17 10:00 66 03/22/17 09:00 60 I/O 03/22/17 03/22/17 03/22/17 03/23/17 03/23/17 03/23/17 07:00 15:00 23:00 07:00 15:00 23:00 Intake Total 974 ml 1205 ml 480 ml Output Total 500 ml 700 ml Balance 474 ml 505 ml 480 ml Intake Oral 240 ml 600 ml 480 ml IV Total 734 ml 605 ml Output Urine Total 500 ml 700 ml # Voids 2 # Bowel Movements 0 0 1 Result Diagram: 03/23/17 0604 03/23/17 0604 Imaging Last Impressions Chest X-Ray 03/21/17 5382 Signed Impressions: Service Date/Time: Tuesday, March 21, 2017 17:38 - CONCLUSION: 1. Minimal basal atelectasis. No effusion. No pneumothorax. Lucien Heller MD CT Angiography 03/21/17 1737 Signed Impressions: Service Date/Time: Thursday, March 21, 2017 18:17 - CONCLUSION: 1. Negative for pulmonary embolus. 2. There is mild dependent atelectasis in the lungs. 3. Mild coronary calcifications. 4. Small hiatal hernia. Lucien Heller MD Objective Remarks General: No acute distress. Ambulate in his room. Heart: Regular rate and rhythm. No murmur. Lungs: Clear to auscultation bilaterally. No wheezes, rales, or rhonchi. Breathing is nonlabored. Abdomen: Soft, nontender, nondistended. Extremities: No lower extremity edema. Psych: Alert and oriented. Procedures 03/22/17 cardiac catheterization Urinary Catheter: No Vascular Central Line Catheter: No A/P Problem List: (1) NSTEMI (non-ST elevated myocardial infarction) ICD Code: I21.4 Status: Acute (2) Chest pain ICD Code: R07.9 Status: Acute (3) Nonsustained ventricular tachycardia ICD Code: I47.2 Status: Acute (4) GERD (gastroesophageal reflux disease) ICD Code: K21.9 Status: Chronic (5) Backache ICD Code: M54.9 Status: Chronic Assessment and Plan 1. Chest pain, NSTEMI, coronary artery disease: Appreciate cardiology recommendations. Status post cardiac catheterization. Echocardiogram ordered. Continue Brilinta, aspirin, statin. 2. Nonsustained ventricular tachycardia: Continue metoprolol. Cardiology has been notified. Continue telemetry monitoring. 3. GERD: Continue Protonix. 4. Chronic intermittent back pain: Continue analgesics as needed. 5. DVT prophylaxis: Subcutaneous heparin. 6. Nausea/vomiting: Continue Zofran as needed. Discharge Planning When cleared by cardiology. Problem Qualifiers (1) Backache: Bryson Nelson MD March 23, 2017 08:27
--- NOTE | 2017-03-23 12:11 | EC ---
Study Study Date:03/23/2017 STUDY CONCLUSIONS SUMMARY - Left ventricle: The cavity size was normal. Wall thickness was normal. Systolic function was normal. The estimated ejection fraction was in the range of 50% to 55%. Wall motion was normal; there were no regional wall motion abnormalities. - Aortic valve: Valve area: 2.23cm^2 (Vmax). - Mitral valve: Mild regurgitation. - Tricuspid valve: Mild regurgitation. If LV function is below 40, please consider prescribing an ACEI or ARB or document rationale for non-use. PROCEDURE DATA STUDY STATUS: Elective. Procedure: Transthoracic echocardiography. Image quality was good. Scanning was performed from the parasternal, apical, and subcostal acoustic windows. Study completion: The patient tolerated the procedure well. Transthoracic echocardiography. M-mode, complete 2D, complete spectral Doppler, and color Doppler. Height: Height: 68in. Weight: Weight: 193.6lb. Body mass index: BMI: 29.5kg/m^2. Body surface area: BSA: 2.02m^2. Patient status: Inpatient. CARDIAC ANATOMY LEFT VENTRICLE: The cavity size was normal. Wall thickness was normal. Systolic function was normal. The estimated ejection fraction was in the range of 50% to 55%. Wall motion was normal; there were no regional wall motion abnormalities. AORTIC VALVE: Trileaflet; normal thickness leaflets. Doppler: Transvalvular velocity was within the normal range. There was no stenosis. No regurgitation. Valve area: 2.23cm^2 (Vmax). Indexed valve area: 1.1cm^2/m^2 (Vmax). AORTA: Aortic root: The aortic root was normal in size. MITRAL VALVE: Structurally normal valve. Doppler: Transvalvular velocity was within the normal range. There was no evidence for stenosis. Mild regurgitation. Valve area by pressure half-time: 5.64cm^2. Indexed valve area by pressure half-time: 2.79cm^2/m^2. Peak gradient: 3mm Hg (D). LEFT ATRIUM: The atrium was normal in size. RIGHT VENTRICLE: The cavity size was normal. Wall thickness was normal. PULMONIC VALVE: Doppler: Transvalvular velocity was within the normal range. There was no evidence for stenosis. No regurgitation. TRICUSPID VALVE: Structurally normal valve. Doppler: Transvalvular velocity was within the normal range. Mild regurgitation. Peak gradient: 28mm Hg (D). PULMONARY ARTERY: The main pulmonary artery was normal-sized. Systolic pressure was within the normal range. RIGHT ATRIUM: The atrium was normal in size. PERICARDIUM: There was no pericardial effusion. SYSTEMIC VEINS: Inferior vena cava: The vessel was normal in size. Patient weight: 193.6lb _Ejection fraction:_ 65-75% _Fractional shortening:_ 32% up to 5Kg 5-11.5Kg 11.6-22.9Kg 23-45Kg 45-57Kg Aortic Root 7-13 <17 13-22 17-27 17-27 LA diam 6-13 <23 24-38 33-47 37-40 RVID 10-17 7-15 7-15 7-18 8-17 LVIDd 12-22 <32 24-38 33-47 37-40 LVPW 2-4 3-6 5-7 6-8 7-8 IVS 2-4 3-6 5-7 6-8 7-8 BASIC MEASUREMENTS ADULT NORMAL Left ventricle LV internal dimension, ED, chordal *53.5 mm 43-52 level, PLAX LV internal dimension, ES, chordal 37.6 mm 23-38 level, PLAX Fractional shortening, chordal level, 30 % >29 PLAX LV posterior wall thickness, ED 10.1 mm IVS/LVPW ratio, ED 0.98 <1.3 Volume, ED, MOD, 1-plane 80 ml Volume, ES, MOD, 1-plane 37 ml Ejection fraction, MOD, 1-plane 54 % Stroke volume, MOD, 1-plane 43 ml Volume index, ED, MOD, 1-plane 40 ml/m^2 Volume index, ES, MOD, 1-plane 18 ml/m^2 Stroke index, MOD, 1-plane 21.3 ml/m^2 Ventricular septum Septal thickness, ED 9.92 mm Left atrium Anterior-posterior dimension 36 mm Anterior-posterior dimension index 1.78 cm/m^2 <2.2 Right ventricle RV internal dimension, ED, PLAX 27.7 mm 19-38 DOPPLER MEASUREMENTS ADULT NORMAL Aortic valve Peak velocity, S 94.1 cm/s Valve area, Vmax 2.23 cm^2 Valve area index, Vmax 1.1 cm^2/m^2 Mitral valve Peak E-wave velocity 82.4 cm/s Peak A-wave velocity 62.2 cm/s Pressure half-time 39 ms Peak gradient, D 3 mm Hg Peak E/A ratio 1.3 Valve area, pressure half-time 5.64 cm^2 Valve area index, pressure half-time 2.79 cm^2/m^2 Tricuspid valve Peak gradient, D 28 mm Hg Maximal inflow velocity 264 cm/s Systemic veins Estimated CVP 10 mm Hg LEGEND: Mean values are shown as u=mean value. Asterisk (*) majano values outside specified normal range. Prepared and signed by Donny Lira [id number]
--- NOTE | 2017-03-23 15:23 | PD.CARD.PN ---
Subjective Subjective Remarks No chest pain, no shortness of breath Objective Medications Current Medications Medications (Trade) Dose Ordered Sig/Marcin Route Start Time Stop Time Status Last Admin (NS Flush) 2 ml UNSCH PRN IV FLUSH 03/21/17 19:15 (NS Flush) 2 ml BID IV FLUSH 03/21/17 21:00 03/23/17 08:18 (Zofran Inj) 4 mg Q6H PRN IVP 03/21/17 19:15 03/22/17 08:15 (Dulcolax Supp) 10 mg DAILY PRN RECTAL 03/21/17 19:15 (Tylenol) 650 mg Q6H PRN PO 03/21/17 19:15 03/22/17 16:45 ([place] 5-325 Mg) 1 tab Q4H PRN PO 03/21/17 19:15 03/22/17 22:06 (Morphine Inj) 2 mg Q3H PRN IV 03/21/17 19:15 (Ecotrin Ec) 81 mg DAILY PO 03/22/17 09:00 03/23/17 08:18 (Lopressor) 12.5 mg Q12HR PO 03/21/17 21:00 03/23/17 08:18 (Protonix) 40 mg DAILY@06 PO 03/21/17 23:30 03/23/17 06:01 (Percocet 5-325 Mg) 1 tab Q4H PRN PO 03/22/17 14:00 (Percocet 10-325 Mg) 1 tab Q4H PRN PO 03/22/17 14:00 (Morphine Inj) 2 mg Q30M PRN IV PUSH 03/22/17 14:00 (Brilinta) 90 mg BID PO 03/22/17 21:00 03/23/17 08:18 (Heparin Inj) 5,000 units Q8H SQ 03/23/17 07:00 03/23/17 15:00 (Lipitor) 80 mg HS PO 03/22/17 21:00 03/22/17 22:04 Vital Signs / I&O Vital Signs Date Time Temp Pulse Resp B/P Pulse Ox O2 Delivery O2 Flow Rate FiO2 03/23/17 12:00 98.4 59 16 123/69 96 03/23/17 12:00 62 03/23/17 11:00 60 03/23/17 10:00 62 03/23/17 09:00 70 03/23/17 08:00 98.4 76 16 136/81 96 03/23/17 08:00 68 03/23/17 07:00 64 03/23/17 04:10 98.6 65 16 112/64 90 03/23/17 04:00 64 03/23/17 03:00 64 03/23/17 02:00 64 03/23/17 01:00 66 03/23/17 00:20 98.9 74 16 131/72 92 03/23/17 00:00 60 03/22/17 23:00 63 03/22/17 22:00 70 03/22/17 21:00 72 03/22/17 20:10 98.9 77 16 140/75 94 03/22/17 20:00 70 03/22/17 19:09 21 03/22/17 19:00 74 03/22/17 18:00 68 03/22/17 17:58 16 03/22/17 17:00 72 03/22/17 16:00 98.2 74 16 131/80 96 03/22/17 16:00 73 I/O 03/22/17 03/22/17 03/22/17 03/23/17 03/23/17 03/23/17 07:00 15:00 23:00 07:00 15:00 23:00 Intake Total 974 ml 1205 ml 480 ml Output Total 500 ml 700 ml Balance 474 ml 505 ml 480 ml Intake Oral 240 ml 600 ml 480 ml IV Total 734 ml 605 ml Output Urine Total 500 ml 700 ml # Voids 2 # Bowel Movements 0 0 1 Physical Exam GENERAL: NAD, AAOx3 SKIN: Warm and dry. HEAD: Atraumatic. Normocephalic. EYES: Pupils equal and round. No scleral icterus. No injection or drainage. ENT: No nasal bleeding or discharge. Mucous membranes pink and moist. NECK: Trachea midline. No JVD. CARDIOVASCULAR: Regular rate and rhythm. RESPIRATORY: No accessory muscle use. Clear to auscultation. Breath sounds equal bilaterally. GASTROINTESTINAL: Abdomen soft, non-tender, nondistended. Hepatic and splenic margins not palpable. MUSCULOSKELETAL: Extremities without clubbing, cyanosis, or edema. No obvious deformities. Right radial no hematoma, neurovascularly intact distally NEUROLOGICAL: Awake and alert. No obvious cranial nerve deficits. Motor grossly within normal limits. Five out of 5 muscle strength in the arms and legs. Normal speech. PSYCHIATRIC: Appropriate mood and affect; insight and judgment normal. Laboratory Laboratory Tests Test 03/23/17 06:04 White Blood Count 9.8 TH/MM3 Red Blood Count 4.44 MIL/MM3 Hemoglobin 12.9 GM/DL Hematocrit 37.7 % Mean Corpuscular Volume 85.1 FL Mean Corpuscular Hemoglobin 29.1 PG Mean Corpuscular Hemoglobin 34.1 % Concent Red Cell Distribution Width 13.3 % Platelet Count 221 TH/MM3 Mean Platelet Volume 8.4 FL Neutrophils (%) (Auto) 77.9 % Lymphocytes (%) (Auto) 11.6 % Monocytes (%) (Auto) 9.8 % Eosinophils (%) (Auto) 0.5 % Basophils (%) (Auto) 0.2 % Neutrophils # (Auto) 7.6 TH/MM3 Lymphocytes # (Auto) 1.1 TH/MM3 Monocytes # (Auto) 1.0 TH/MM3 Eosinophils # (Auto) 0.0 TH/MM3 Basophils # (Auto) 0.0 TH/MM3 CBC Comment DIFF FINAL Differential Comment Sodium Level 140 MEQ/L Potassium Level 3.9 MEQ/L Chloride Level 106 MEQ/L Carbon Dioxide Level 29.4 MEQ/L Anion Gap 5 MEQ/L Blood Urea Nitrogen 13 MG/DL Creatinine 1.15 MG/DL Estimat Glomerular Filtration 64 ML/MIN Rate Random Glucose 100 MG/DL Calcium Level 8.0 MG/DL Total Bilirubin 1.3 MG/DL Direct Bilirubin 0.2 MG/DL Indirect Bilirubin 1.1 MG/DL Aspartate Amino Transf 99 U/L (AST/SGOT) Alanine Aminotransferase 42 U/L (ALT/SGPT) Alkaline Phosphatase 63 U/L Total Protein 6.3 GM/DL Albumin 3.1 GM/DL Assessment and Plan Problem List: (1) NSTEMI (non-ST elevated myocardial infarction) (2) Nonsustained ventricular tachycardia (3) Chest pain Assessment and Plan 1) NSTEMI/VT s/p JIMMIE to LAD with diagonal with residual disease 2) ASA/Brilinta/BB/Statin 3) Echo pending 4) Plan discharge in the morning with follow up in the office Cesar Zheng DO March 23, 2017 15:23
[2017-03-23] MEDS: ATORVASTATIN 80 MG TAB PO SCH (22:01)
[2017-03-24] VITALS (9 sets, daily range): BP systolic 97–122; BP diastolic 49–74; PULSE 62–86; RESP 16–20; TEMP 98.2–98.4; O2SAT 96
[2017-03-24 05:27] LABS: HEMATOCRIT 38.7 % (39.0-51.0); MEAN CELL VOLUME 85.8 FL (80.0-100.0); MEAN CORPUSCULAR HEMOGLOBIN 28.9 PG (27.0-34.0); MEAN CORPUSCULAR HGB CONC 33.7 % (32.0-36.0); PLATELET COUNT 223 TH/MM3 (150-450); RED CELL DISTRIBUTION WIDTH 13.2 % (11.6-17.2); REVIEW FLAG FINAL; WHITE BLOOD COUNT 9.3 TH/MM3 (4.0-11.0)
[2017-03-24] MEDS: PANTOPRAZOLE SOD 40 MG DELAYED RELEASE TAB PO SCH (06:15)
[2017-03-24] MEDS: HEPARIN SODIUM - SQ 10,000 UNITS/ML VIAL SQ SCH (06:15)
--- NOTE | 2017-03-24 08:44 | HHI.DCPOC ---
Discharge Care Plan Diagnosis: (1) Chest pain (2) NSTEMI (non-ST elevated myocardial infarction) (3) Nonsustained ventricular tachycardia (4) Status post coronary artery stent placement Goals to Promote Your Health * To prevent worsening of your condition and complications * To maintain your health at the optimal level Directions to Meet Your Goals Take your medications as prescribed Follow your dietary instruction Follow activity as directed Keep your appointments as scheduled Take your immunizations and boosters as scheduled If your symptoms worsen call your PCP, if no PCP go to Urgent Care Center or Emergency Room Smoking is Dangerous to Your Health. Avoid second hand smoke Call the 24-hour hour crisis hotline for domestic abuse at Tasha Gaines PA-C March 24, 2017 8:44 am
[2017-03-24] MEDS ORDERED: BRIL90TA PO (08:49)
[2017-03-24] MEDS ORDERED: ATOR1TAB18 PO (08:49)
[2017-03-24] MEDS ORDERED: ASPI81TA11 PO (08:49)
[2017-03-24] MEDS ORDERED: PANT40TA3 PO (08:49)
[2017-03-24] MEDS ORDERED: METO25TA3 PO (08:49)
[2017-03-24] MEDS: SODIUM CHLORIDE 0.9% FLUSH 10 ML FLUSH IV FLUSH SCH (09:08)
[2017-03-24] MEDS: TICAGRELOR 90 MG TAB PO SCH (09:08)
[2017-03-24] MEDS: ASPIRIN EC 81 MG TABEC PO SCH (09:08)
[2017-03-24] MEDS: METOPROLOL TARTRATE 25 MG TAB PO SCH (09:08)
--- NOTE | 2017-03-24 09:27 | HHI.DS ---
cc: Cesar Zheng DO Discharge Summary Admission Date March 21, 2017 at 7:15 pm Discharge Date: March 24, 2017 Admitting Diagnosis NSTEMI (1) NSTEMI (non-ST elevated myocardial infarction) ICD Code: I21.4 Diagnosis: Principal (2) Status post coronary artery stent placement ICD Code: Z95.5 Diagnosis: Principal (3) Chest pain ICD Code: R07.9 Diagnosis: Principal (4) Nonsustained ventricular tachycardia ICD Code: I47.2 Diagnosis: Secondary (5) GERD (gastroesophageal reflux disease) ICD Code: K21.9 Diagnosis: Secondary (6) Backache ICD Code: M54.9 Diagnosis: Secondary Procedures 03/22/17 cardiac catheterization s/p JIMMIE to LAD with diagonal with residual disease Brief History - From Admission Mr. Robles is a very pleasant 66-year-old male with a history of GERD and backaches who presented to the emergency room with complaint of chest pain. Troponin I elevation was noted as well as short runs of nonsustained ventricular tachycardia in the [place] emergency room. The patient has been transferred to [facility] for admission, evaluation, and management. The patient states he was out with his this afternoon. He had pizza and wings for lunch and they were shopping afterwards when he started to get an abrupt onset of upper chest discomfort and pain in both of his arms; he rates the pain as an 8 out of 10 and describes it as sharp. He states it waxed and waned at times with pain levels decreasing only to 5 out of 10 for maybe 5 minutes. The pain started at 2:30 PM on 03/21/2017 and by 5:30 PM, when the pain had not gone away, his urged him to seek emergency medical treatment and drove him to the emergency room. He states that the pain was relieved by medications administered in the ER: Aspirin, nitroglycerin, Dilaudid, and morphine. He denies any current chest pain. He states that he has had nausea 3 times today with vomiting. He reports some intermittent episodes of diaphoresis but believes this was related to anxiety from having the chest pain. He denies palpitations, shortness of breath, or dizziness/ lightheadedness. He has been suffering from heartburn and describes frequent eructation. He reports that last Thursday on 03/16/2017, he had returned from a flight to [place] with his . They were running through the [place] airport and he states he became diaphoretic and short of breath and required rest to ameliorate symptoms. 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 He is unable to tell me how long this is been going on but states he attributed the shortness of breath that occurred while trying to kick start motorcycles to getting older and not being able to perform like he used to. He denies any recent illness, fever, chills, upper respiratory symptoms, syncope , nausea, vomiting, or diarrhea. He denies diabetes mellitus, hypertension, heart disease, respiratory problems, kidney or liver problems, thyroid dysfunction, cancer, or seizures. He has not seen a primary care physician in about 3 years. . CBC/BMP: 03/24/17 0333 03/23/17 0604 Significant Findings Laboratory Tests Test 03/21/17 03/22/17 03/22/17 03/22/17 17:30 01:02 03:56 10:59 White Blood Count 11.3 TH/MM3 13.4 TH/MM3 (4.0-11.0) (4.0-11.0) Neutrophils # (Auto) 7.9 TH/MM3 11.5 TH/MM3 (1.8-7.7) (1.8-7.7) Estimat Glomerular Filtration 61 ML/MIN (>89) 80 ML/MIN (>89) Rate Random Glucose 146 MG/DL 116 MG/DL (74-106) (74-106) Calcium Level 8.0 MG/DL 8.2 MG/DL (8.5-10.1) (8.5-10.1) Troponin I 0.19 NG/ML 6.66 NG/ML 9.80 NG/ML (0.02-0.05) (0.02-0.05) (0.02-0.05) Activated Partial 32.9 SEC 33.0 SEC Thromboplast Time (24.3-30.1) (24.3-30.1) Hemoglobin 12.8 GM/DL (13.0-17.0) Neutrophils (%) (Auto) 85.6 % (16.0-70.0) Aspartate Amino Transf 93 U/L (15-37) (AST/SGOT) Cholesterol Level 226 MG/DL (120-200) LDL Cholesterol 151 MG/DL (0-99) Test 03/23/17 03/24/17 06:04 03:33 Red Blood Count 4.44 MIL/MM3 (4.50-5.90) Hemoglobin 12.9 GM/DL (13.0-17.0) Hematocrit 37.7 % 38.7 % (39.0-51.0) (39.0-51.0) Neutrophils (%) (Auto) 77.9 % (16.0-70.0) Monocytes (%) (Auto) 9.8 % (0.0-8.0) Monocytes # (Auto) 1.0 TH/MM3 (0-0.9) Estimat Glomerular Filtration 64 ML/MIN (>89) Rate Calcium Level 8.0 MG/DL (8.5-10.1) Total Bilirubin 1.3 MG/DL (0.2-1.0) Indirect Bilirubin 1.1 MG/DL (0.0-0.8) Aspartate Amino Transf 99 U/L (15-37) (AST/SGOT) Total Protein 6.3 GM/DL (6.4-8.2) Albumin 3.1 GM/DL (3.4-5.0) Imaging Last Impressions Chest X-Ray [id number] Signed Impressions: Service Date/Time: Tuesday, March 21, 2017 17:38 - CONCLUSION: 1. Minimal basal atelectasis. No effusion. No pneumothorax. Lucien Heller MD CT Angiography [id number] Signed Impressions: Service Date/Time: Tuesday, March 21, 2017 18:17 - CONCLUSION: 1. Negative for pulmonary embolus. 2. There is mild dependent atelectasis in the lungs. 3. Mild coronary calcifications. 4. Small hiatal hernia. Lucien Heller MD PE at Discharge GENERAL: Well-developed, well-nourished male patient in [facility]. SKIN: Warm and dry. HEENT: Atraumatic. Normocephalic. Pupils equal and round. Mucous membranes pink and moist. NECK: Trachea midline. CARDIOVASCULAR: Regular rate and rhythm. No murmur appreciated. RESPIRATORY: No accessory muscle use. Clear to auscultation. Breath sounds equal bilaterally. GASTROINTESTINAL: Abdomen soft, non-tender, nondistended. MUSCULOSKELETAL: Extremities without clubbing, cyanosis, or edema. NEUROLOGICAL: Awake and alert. No obvious cranial nerve deficits. Motor grossly within normal limits. Normal speech. PSYCHIATRIC: Appropriate mood and affect; insight and judgment normal. Pt update on day of discharge The patient reports feeling well today. Denies any further episodes of chest pain. Denies any shortness of breath or palpitations. He has no medical complaints. He wants to go home. Thoroughly discussed heart healthy diet and lifestyle modifications. Hospital Course The patient was initially admitted to the ER with complaints of chest pain. He was given aspirin, nitroglycerin, Dilaudid, and morphine which mildly relieved his pain, however after being started on heparin drip, the pain mostly resolved. His troponin elevated from 0.19 --> 6.66 --> 9.80, diagnosed with NSTEMI. Cardiology was consulted. He underwent cardiac catheterization with Dr. Zheng, now status post JIMMIE to LAD with diagonal with residual disease. He was started on aspirin, Brilinta, metoprolol, and his statin was continued. Echocardiogram was done which showed normal ejection fraction 5055 percent. The patient also had an episode of V. tach during hospitalization, no further episodes status post catheterization and being started on metoprolol. The patient was kept one day after his cardiac catheterization and stent placement, he had no further episodes of chest pain, no events on telemetry. He was cleared for discharge by cardiology on 03/24. Protonix was continued for his GERD. Pain medications were given for his chronic back pain. Zofran was given for nausea. All symptoms resolved at discharge, patient tolerating oral intake. Extensive counseling was done regarding heart healthy diet and lifestyle modifications, also discussed with patient's . He'll be following up with Dr. Zheng after discharge. Pt Condition on Discharge: Stable Discharge Disposition: Discharge Home Discharge Time: > 30 minutes Discharge Instructions DIET: Follow Instructions for: Heart Healthy Diet Activities you can perform: Regular-No Restrictions Follow up Referrals: Cardiology - 1 Week with Cesar Zheng DO PCP Follow-up - 1 Week New Medications: Aspirin (Aspirin EC) 81 Mg Tabdr 81 MG PO DAILY Prevent Blood Clot #30 TAB Atorvastatin (Atorvastatin) 80 Mg Tab 80 MG PO HS Cholesterol Management #30 TAB Metoprolol Tartrate (Metoprolol Tartrate) 25 Mg Tab 12.5 MG PO Q12HR Regulate Heart Beat #60 TAB Pantoprazole (Pantoprazole) 40 Mg Tab 40 MG PO DAILY@06 Manage Heartburn #30 TAB Ticagrelor (Brilinta) 90 Mg Tab 90 MG PO BID Prevent Blood Clot #60 TAB Tasha Gaines PA-C March 24, 2017 09:27
--- NOTE | 2017-03-24 10:27 | PD.CARD.PN ---
Subjective Subjective Remarks No chest pain, no shortness of breath Doing well, up and moving Objective Medications Current Medications Medications (Trade) Dose Ordered Sig/Marcin Route Start Time Stop Time Status Last Admin (NS Flush) 2 ml UNSCH PRN IV FLUSH 03/21/17 19:15 (NS Flush) 2 ml BID IV FLUSH 03/21/17 21:00 03/24/17 09:08 (Zofran Inj) 4 mg Q6H PRN IVP 03/21/17 19:15 03/22/17 08:15 (Dulcolax Supp) 10 mg DAILY PRN RECTAL 03/21/17 19:15 (Tylenol) 650 mg Q6H PRN PO 03/21/17 19:15 03/22/17 16:45 ([place] 5-325 Mg) 1 tab Q4H PRN PO 03/21/17 19:15 03/22/17 22:06 (Morphine Inj) 2 mg Q3H PRN IV 03/21/17 19:15 (Ecotrin Ec) 81 mg DAILY PO 03/22/17 09:00 03/24/17 09:08 (Lopressor) 12.5 mg Q12HR PO 03/21/17 21:00 03/24/17 09:08 (Protonix) 40 mg DAILY@06 PO 03/21/17 23:30 03/24/17 06:15 (Percocet 5-325 Mg) 1 tab Q4H PRN PO 03/22/17 14:00 (Percocet 10-325 Mg) 1 tab Q4H PRN PO 03/22/17 14:00 (Morphine Inj) 2 mg Q30M PRN IV PUSH 03/22/17 14:00 (Brilinta) 90 mg BID PO 03/22/17 21:00 03/24/17 09:08 (Heparin Inj) 5,000 units Q8H SQ 03/23/17 07:00 03/24/17 06:15 (Lipitor) 80 mg HS PO 03/22/17 21:00 03/23/17 22:01 Vital Signs / I&O Vital Signs Date Time Temp Pulse Resp B/P Pulse Ox O2 Delivery O2 Flow Rate FiO2 03/24/17 08:00 65 03/24/17 07:00 70 03/24/17 07:00 98.4 65 20 121/70 96 03/24/17 06:00 62 03/24/17 05:00 62 03/24/17 04:00 65 03/24/17 04:00 86 16 97/49 96 03/24/17 03:00 62 03/24/17 02:00 72 03/24/17 01:00 68 03/24/17 01:00 70 03/24/17 00:00 98.2 71 16 122/74 96 03/24/17 00:00 72 03/23/17 23:00 64 03/23/17 22:00 72 03/23/17 21:00 70 03/23/17 20:00 98.4 75 16 130/78 96 03/23/17 20:00 75 03/23/17 19:00 72 03/23/17 18:00 64 03/23/17 17:00 66 03/23/17 16:00 68 03/23/17 16:00 98.2 71 16 127/72 96 03/23/17 15:00 68 03/23/17 14:00 76 03/23/17 13:00 72 03/23/17 12:00 98.4 59 16 123/69 96 03/23/17 12:00 62 03/23/17 11:00 60 I/O 03/23/17 03/23/17 03/23/17 03/24/17 03/24/17 03/24/17 07:00 15:00 23:00 07:00 15:00 23:00 Intake Total 480 ml 720 ml 240 ml Output Total 1060 ml Balance 480 ml 720 ml -820 ml Intake Oral 480 ml 720 ml 240 ml Output Urine Total 1060 ml # Voids 2 5 # Bowel Movements 1 1 Physical Exam GENERAL: NAD, AAOx3 SKIN: Warm and dry. HEAD: Atraumatic. Normocephalic. EYES: Pupils equal and round. No scleral icterus. No injection or drainage. ENT: No nasal bleeding or discharge. Mucous membranes pink and moist. NECK: Trachea midline. No JVD. CARDIOVASCULAR: Regular rate and rhythm. RESPIRATORY: No accessory muscle use. Clear to auscultation. Breath sounds equal bilaterally. GASTROINTESTINAL: Abdomen soft, non-tender, nondistended. Hepatic and splenic margins not palpable. MUSCULOSKELETAL: Extremities without clubbing, cyanosis, or edema. No obvious deformities. Right radial no hematoma, neurovascularly intact distally NEUROLOGICAL: Awake and alert. No obvious cranial nerve deficits. Motor grossly within normal limits. Five out of 5 muscle strength in the arms and legs. Normal speech. PSYCHIATRIC: Appropriate mood and affect; insight and judgment normal. Laboratory Laboratory Tests Test 03/24/17 03:33 White Blood Count 9.3 TH/MM3 Red Blood Count 4.50 MIL/MM3 Hemoglobin 13.0 GM/DL Hematocrit 38.7 % Mean Corpuscular Volume 85.8 FL Mean Corpuscular Hemoglobin 28.9 PG Mean Corpuscular Hemoglobin 33.7 % Concent Red Cell Distribution Width 13.2 % Platelet Count 223 TH/MM3 Mean Platelet Volume 8.7 FL Assessment and Plan Problem List: (1) NSTEMI (non-ST elevated myocardial infarction) (2) Nonsustained ventricular tachycardia (3) Chest pain Assessment and Plan 1) NSTEMI/NSVT s/p JIMMIE to LAD with diagonal with residual disease 2) ASA/Brilinta/BB/Statin 3) EF 50-55% 4) Cardiovascularly stable for discharge, will see in the office in 2-4 weeks 5) No lifting more than 10 lbs for 3 days Cesar Zheng DO March 24, 2017 10:27
--- NOTE | 2017-03-26 23:25 | MA ---
cc: CESAR CARO DO DATE: 03/22/17 PROCEDURE Left heart catheterization, coronary angiogram, drug-eluting stent (2.5 x 26) to LAD with balloon angioplasty of diagonal, sedation 90 minutes, complex case. PREPROCEDURE DIAGNOSIS Chest pain concerning for coronary insufficiency, NSTEMI, nonsustained ventricular tachycardia. POSTPROCEDURE DIAGNOSIS Coronary artery disease status post drug-eluting stent (2.5 x 26) to LAD with balloon angioplasty of diagonal MEDICATIONS 1. Versed 0.5 mg. 2. Fentanyl 50 mcg. 3. Heparin 8000 units, 4. Brilinta 180 mg. 5. Aspirin 325 mg. CONTRAST 200 mL. FLUOROSCOPY 45 minutes Moderate sedation 90 minutes PROCEDURAL SUMMARY Angel Robles is a pleasant 66-year-old male who presented to [facility] on March 21, 2017 with A complaint of chest pain. He was found to have an elevated troponin. He was also noted to have nonsustained ventricular tachycardia on telemetry. Because of this, he was recommended cardiac catheterization. Risks, benefits and alternatives were explained to him and he consented as such. He was brought to the lab and prepped in the usual sterile fashion. Right radial artery was accessed using a modified Seldinger technique and placement of a 5/6 Irish slender sheath. This was easily aspirated and flushed. JR-4 catheter was taken up over a J-wire to the ascending aorta and across the aortic valve into the left ventricle to measure pressures. This was pulled back across the aortic valve showing no significant gradient of aortic stenosis. A JR-4 catheter was then used for selective angiography of the right coronary system. This was exchanged out for a JL-3.5 catheter which was used for selective angiography of the left coronary system. Please see below about intervention on the LAD. Post intervention, the guide catheter was removed over a J-wire and a radial band was placed across the radial arteriotomy site for hemostasis. The patient left the supervisor cytogenetic laboratory cardiovascularly stable. FINDINGS Left main - normal-appearing vessel with adequate reflux. It bifurcates into an LAD and circumflex. LAD - proximal to mid 95% lesion which includes a bifurcation of the diagonal. The diagonal has a 95% ostial lesion __ the proximal to mid lesion is a 40-50% lesion in the LAD. Left circumflex is a normal-appearing vessel with no significant disease throughout. It does give off two major obtuse marginals that have no significant disease. Right coronary artery is a dominant vessel in nature. It does have a 20% focal lesion in the mid portion but no significant stenosis. Left ventricular end-diastolic pressure 26. INTERVENTION Because of the significant disease in the LAD, an EBU 3.5 catheter was used to engage the left main. The patient was given additional heparin as an anticoagulant. The BMW wire was advanced down the diagonal. A Prowater wire was advanced down the LAD. A compliant balloon 2 x 12 was then advanced down the Prowater to the proximal to mid portion of the LAD and was inflated. A drug-eluting stent (2.5 x 26) was then used across the [id number] LAD to cover tandem lesions in the LAD. This was inflated to nominal pressure. After this, there was adequate flow down the LAD and it was felt that the diagonal had flow and the BMW wire was pulled back. The BMW wire was pulled back to rewire through the stent. During this, the diagonal lost flow. I was unable to get the BMW wire through the original stent and so it is felt that this needed to be postdilated first before rewiring the diagonal. A noncompliant balloon (2.5 x 15) was used to post dilate the stent. After this a BMW wire, a moderate support whisper and a PT choice floppy wire were attempted to get down the diagonal. Finally, a moderate support whisper wire was used and able to get into the diagonal. A compliant balloon (1.5 x 10) was used to angioplasty the ostial LAD. After this, a noncompliant balloon (2 x 6) was used to dilate the ostial diagonal. Post shots show diagonal with a 90% lesion and BIANCA II to III flow and it was felt that further angioplasty of the diagonal may compromise his flow with possible dissection. At this point, the patient was hemodynamically stable without chest pain and it was felt that there was adequate flow down the diagonal. Both wires were removed and post shots show a well opposed stent with no dissection noted. IMPRESSION 1. Chest pain concerning for coronary insufficiency. 2. NSTEMI 3. Nonsustained VT. 4. Coronary artery disease status post drug-eluting stent (2.5 x 26) to the LAD with balloon angioplasty of the diagonal. RECOMMENDATIONS 1. Mr. Robles will be placed on aspirin and Brilinta due to his drug-eluting stent. He should stay on the Brilinta for least 12 months. 2. We will check an echo to look at his overall left ventricular function, cardiac structure and possible valvuopathies. 3. He will stay in the hospital 48 hours status post his NSTEMI. 4. Upon discharge, he will follow up in the office with me 5. I spoke to he and his the necessity of aspirin and Brilinta. They will check with their insurance company about getting Brilinta refills and, if unable to, will call the office and be changed to Plavix. Thank you for allowing me to see Angel Robles. If there are any questions, please do not hesitate to call. Cesar Caro DO VGP/SA /9:56 PM /10:50 PM
== END 2017-03-24 10:25 | disposition home or self-care (01) | DRG 247 ==
LOC: PHED 17:22 → PHEDA 19:15 → HCIS 22:28
PROVIDERS: ADMIT Family Medicine; ATTEND Family Medicine
PROC: 4A023N7 Measurement of Cardiac Sampling and Pressure, Left Heart, Percutaneous Approach (ICD-10-PCS; principal; 2017-03-22)
PROC: 027034Z Dilation of Coronary Artery, One Artery with Drug-eluting Intraluminal Device, Percutaneous Approach (ICD-10-PCS; 2017-03-22)
PROC: B2111ZZ Fluoroscopy of Multiple Coronary Arteries using Low Osmolar Contrast (ICD-10-PCS; 2017-03-22)
DX: I21.4 Non-ST elevation (NSTEMI) myocardial infarction (principal); I47.2 Ventricular tachycardia; J98.11 Atelectasis; E78.5 Hyperlipidemia, unspecified; G89.29 Other chronic pain; I25.10 Atherosclerotic heart disease of native coronary artery without angina pectoris; K21.9 Gastro-esophageal reflux disease without esophagitis; K44.9 Diaphragmatic hernia without obstruction or gangrene; F06.4 Anxiety disorder due to known physiological condition; Z79.899 Other long term (current) drug therapy; Z82.49 Family history of ischemic heart disease and other diseases of the circulatory system; Z87.891 Personal history of nicotine dependence; Z95.5 Presence of coronary angioplasty implant and graft; M54.9 Dorsalgia, unspecified
CPT/HCPCS: 71010; 71275; 80048; 80053; 80061; 80076; 82550; 82552; 83036; 83690; 83735; 83880; 84443; 84484; 85002; 85025; 85027; 85610; 85730; 92920; 92921; 92928; 93005; 93306; 93454; 96365; 96375; 96376; C1725; C1769; C1874; C1887; C1893; J1170; J1644; J2250; J2270; J2405; J3010; J7030; Q9967